=== PATIENT | male | born 1975 ===

== ENCOUNTER 2017-11-14 00:46 | Emergency (ER) | payer MEDICAID ==
[2017-11-14 00:55] VITALS: BP 154/104; PULSE 73; RESP 20; TEMP 99.2; O2SAT 97
[2017-11-14] MEDS ORDERED: Sodium Chloride 0.9% 1,000 ML IV STA (01:10)
--- NOTE | 2017-11-14 01:29 | ED PDOC ---
HPI: Psych/Substance Abuse Time Seen by Provider: 11/14/17 00:57 Chief Complaint (Nursing): Alcohol Ingestion Chief Complaint (Provider): Alcohol Ingestion History Per: Patient History/Exam Limitations: no limitations Onset/Duration Of Symptoms: Mins (prior to arrival) Current Symptoms Are (Timing): Still Present Additional Complaint(s): 42 year old male with previous medical history of alcoholism, who presents to the emergency department with a complaint of feeling tremulous causing inability to walk prior to arrival. Patient stated that he was drinking half a pint of liquor daily but recently stopped because he "wanted to change his life ". Last drink was on 11/12/17. PMD: none provided Past Medical History Reviewed: Historical Data Vital Signs: Last Vital Signs Temp 99.2 F 11/14/17 00:50 Pulse 73 11/14/17 00:50 Resp 20 11/14/17 00:50 BP 154/104 H 11/14/17 00:50 Pulse Ox 97 11/14/17 00:50 - Family History Family History: States: Unknown Family Hx - Social History Alcohol: > 2 Drinks/Day - Allergies Allergies/Adverse Reactions: Allergies Allergy/AdvReac Type Severity Reaction Status Date / Time No Known Allergies Allergy Verified 11/14/17 00:50 Review of Systems ROS Statement: Except As Marked, All Systems Reviewed And Found Negative Neurological: Positive for: Incoordination, Other (tremulous) Psych: Positive for: Withdrawal (ETOH) Physical Exam - Reviewed Nursing Documentation Reviewed: Yes Vital Signs Reviewed: Yes - Physical Exam Appears: Positive for: Well, Non-toxic, Uncomfortable (tremulous) Head Exam: Positive for: ATRAUMATIC, NORMAL INSPECTION, NORMOCEPHALIC Skin: Positive for: Normal Color, Warm, DRY Eye Exam: Positive for: EOMI, Normal appearance, PERRL ENT: Positive for: Other (tongue fasiculations) Neck: Positive for: Normal, Painless ROM Cardiovascular/Chest: Positive for: Regular Rate, Rhythm Respiratory: Positive for: CNT, Normal Breath Sounds Gastrointestinal/Abdominal: Positive for: Normal Exam, Bowel Sounds, Soft Back: Positive for: Normal Inspection Extremity: Positive for: Normal ROM Neurologic/Psych: Positive for: Alert, Oriented - Laboratory Results Result Diagrams: 11/14/17 01:50 11/14/17 01:50 - ECG O2 Sat by Pulse Oximetry: 97 (RA) Pulse Ox Interpretation: Normal Medical Decision Making Medical Decision Making: Initial Impression: Alcohol withdrawal Initial Plan: * EKG * Alcohol serum * BMP * Drug screen, urine * CBC * Ativan 2mg IV * Librium 50mg PO * NS 1,000ml IV per 1,000mls/hr * Urinalysis 320 Pt. no longer tremulous, states he's feeling better. pt. given list of detox facilities. Pt. will go tomorrow. Return precautions discussed. Scribe Attestation: Documented by Nadine Andrea, acting as a scribe for Young Tello MD. Provider Scribe Attestation: All medical record entries made by the Scribe were at my direction and personally dictated by me. I have reviewed the chart and agree that the record accurately reflects my personal performance of the history, physical exam, medical decision making, and the department course for this patient. I have also personally directed, reviewed, and agree with the discharge instructions and disposition. Disposition - Clinical Impression Clinical Impression: Alcohol dependence with withdrawal - Disposition Referrals: Alcoholics Anonymous [Outside] Disposition Time: 03:21 Condition: IMPROVED Additional Instructions: Please seek a detox center as soon as possible. Instructions: Alcohol Withdrawal (DC) Forms: [employer] (Sinhala)
[2017-11-14 01:55] LABS: BASO # 0.1 K/uL (0.0-0.2); EOS # 0.2 K/uL (0.0-0.7); EOS % 6.2 % (0.0-4.0); HEMATOCRIT 37.3 % (35.0-51.0); LYMPH # 0.7 K/uL (1.0-4.3); LYMPH % 21.5 % (20.0-40.0); MEAN CELL VOLUME 95.9 fl (80.0-94.0); MEAN CORPUSCULAR HEMOGLOBIN 31.9 pg (27.0-31.0); MEAN CORPUSCULAR HGB CONC 33.3 g/dL (33.0-37.0); MEAN PLATELET VOLUME 8.7 fl (7.2-11.7); MONO # 0.5 K/uL (0.0-0.8); MONO % 16.2 % (0.0-10.0); NEUT # 1.7 K/uL (1.8-7.0); NEUT % 54.1 % (50.0-75.0); NRBC % 0.2 % (0.0-0.0); RED CELL DISTRIBUTION WIDTH 13.8 % (11.5-14.5); WHITE BLOOD COUNT 3.1 K/uL (4.8-10.8)
[2017-11-14 02:05] LABS: ALCOHOL SERUM < 10 mg/dl (0-10); BLOOD UREA NITROGEN 9 mg/dl (9-20); CALCIUM 9.1 mg/dL (8.4-10.2); CARBON DIOXIDE 28 mmol/L (22-30); CHLORIDE 94 mmol/L (98-107); GFR AFRICAN-AMERICAN > 60; GLUCOSE,RANDOM 100 mg/dL (75-110); POTASSIUM 3.4 MMOL/L (3.6-5.0); SODIUM 136 mmol/l (132-148)
--- NOTE | 2017-11-14 15:52 | CARD ---
APPROVED REPORT EKG Measurement Heart [id number] <Conclusion> Normal sinus rhythm Normal ECG
== END 2017-11-14 04:40 | disposition home or self-care (01) ==
LOC: MERGE 00:46 → H.ER 00:46
DX: F10.239 Alcohol dependence with withdrawal, unspecified (principal)
CPT/HCPCS: 80048; 80320; 85025; 93005; 96374; 99282; J2060; J7040

== ENCOUNTER 2018-12-31 07:32 | Emergency (ER) | payer MEDICAID, OTHER ==
[2018-12-31 07:46] VITALS: BMI 25.2
[2018-12-31 07:48] VITALS: BP 145/75; RESP 20; TEMP 98.4; O2SAT 98
--- NOTE | 2018-12-31 08:18 | ED PDOC ---
HPI: General Adult Time Seen by Provider: 12/31/18 08:04 Chief Complaint (Nursing): Abnormal Skin Integrity Chief Complaint (Provider): Rectal pain History Per: Patient History/Exam Limitations: no limitations Onset/Duration Of Symptoms: Days (2) Current Symptoms Are (Timing): Still Present Severity: Moderate Additional History Per: Patient Additional Complaint(s): 43yo male, otherwise well, comes to ER reporting pain and swelling to his right perirectal area x 2 days. He denies any fever, chills, or discharge from the site. No additional complaints. PMD: Past Medical History Reviewed: Historical Data, Nursing Documentation, Vital Signs Vital Signs: Last Vital Signs Temp 98.4 F 12/31/18 07:46 Pulse 105 H 12/31/18 07:46 Resp 20 12/31/18 07:46 BP 145/75 12/31/18 07:46 Pulse Ox 98 12/31/18 07:46 - Medical History PMH: Depression Denies: Diabetes, Emphysema, Hepatitis, HIV, HTN, Chronic Kidney Disease, Seizures, Sexually Transmitted Disease - Surgical History Surgical History: No Surg Hx - Family History Family History: States: No Known Family Hx - Immunization History Hx Tetanus Toxoid Vaccination: Yes Hx Influenza Vaccination: Yes Hx Pneumococcal Vaccination: No - Home Medications Home Medications: Ambulatory Orders Medication Instructions Recorded chlordiazePOXIDE [Chlordiazepoxide 25 mg PO Q4 PRN #20 cap 11/14/17 HCl] Naproxen [Naprosyn] 500 mg PO Q12H #20 tab 12/31/18 RX: Clindamycin [Cleocin] 300 mg PO TID #30 cap 12/31/18 - Allergies Allergies/Adverse Reactions: Allergies Allergy/AdvReac Type Severity Reaction Status Date / Time No Known Allergies Allergy Verified 12/31/18 07:54 Review of Systems ROS Statement: Except As Marked, All Systems Reviewed And Found Negative Constitutional: Negative for: Fever, Chills Gastrointestinal: Positive for: Rectal Pain Physical Exam - Reviewed Nursing Documentation Reviewed: Yes Vital Signs Reviewed: Yes - Physical Exam Appears: Positive for: Non-toxic, No Acute Distress Head Exam: Positive for: ATRAUMATIC, NORMAL INSPECTION, NORMOCEPHALIC Skin: Positive for: Normal Color Eye Exam: Positive for: Normal appearance Neck: Positive for: Supple Cardiovascular/Chest: Positive for: Regular Rate, Rhythm Respiratory: Positive for: Normal Breath Sounds Rectal: Positive for: Tenderness (right perirectal area with induration, non- fluctuant. no drianage. does not pass sphincter) Neurologic/Psych: Positive for: Alert, Oriented. Negative for: Motor/Sensory Deficits - ECG O2 Sat by Pulse Oximetry: 98 (RA) Pulse Ox Interpretation: Normal Medical Decision Making Medical Decision Making: Rectal pain x 2 days Plan: Non-fluctuant area, will not incise and drain at this time. Patient to be started on PO antibiotics, instructed on sitz baths Informed to follow up in 2-3 days for re-evaluation Patient given prescription for Naproxen for pain relief. Scribe Attestation: Documented by Khalida Durbin acting as a scribe for David Abdul MD. Provider Attestation: All medical record entries made by the Scribe were at my direction and personally dictated by me. I have reviewed the chart and agree that the record accurately reflects my personal performance of the history, physical exam, medical decision making, and the department course for this patient. I have also personally directed, reviewed, and agree with the discharge instructions and disposition. Disposition - Clinical Impression Clinical Impression: Perirectal cellulitis - Patient ED Disposition Is Patient to be Admitted: No Counseled Patient/Family Regarding: Diagnosis, Need For Followup, Rx Given - Disposition Referrals: [facility] [Outside] Disposition: Routine/Home Disposition Time: 08:15 Condition: FAIR Prescriptions: RX: Clindamycin [Cleocin] 300 mg PO TID #30 cap Naproxen [Naprosyn] 500 mg PO Q12H #20 tab Instructions: Cellulitis (Skin Infection), Adult (DC) Forms: [employer] (Panamanian)
[2018-12-31 08:19] VITALS: PULSE 89
== END 2018-12-31 08:20 | disposition home or self-care (01) ==
LOC: H.ER 07:32
DX: K61.1 Rectal abscess (principal); Z86.59 Personal history of other mental and behavioral disorders

== ENCOUNTER 2019-01-05 12:14 | Inpatient (IN) | payer OTHER ==
[2019-01-05 12:15] VITALS: BMI 25.2
[2019-01-05] MEDS ORDERED: Piperacillin/Tazobact 3.375 GM in Sodium Chloride 0.9% 100 ML IVPB ONE (12:47)
[2019-01-05] MEDS ORDERED: Sodium Chloride 0.9% 500 ML IV ONE (12:49)
[2019-01-05] MEDS ORDERED: Tdap Vaccine 0.5 ml Vial (10-64 yrs) IM ONE ×2 (12:55→13:25)
--- NOTE | 2019-01-05 13:02 | ED PDOC ---
HPI: General Adult Time Seen by Provider: 01/05/19 12:33 Chief Complaint (Nursing): Wound Check Chief Complaint (Provider): Rectal Pain History Per: Patient History/Exam Limitations: no limitations Onset/Duration Of Symptoms: Days (x1 week) Current Symptoms Are (Timing): Still Present Additional Complaint(s): 43 year old male presents to the ED for evaluation of persistent rectal pain for the past week. He reports he was seen here two days after onset and sent home w ith Clindamycin which he notes compliance with. Despite this, patient is stating symptoms worsened and the swelling / redness to the area spread, making it extremely painful to sit. Otherwise denies fever, chills, blood in stool, vomiting, and diarrhea. Tetanus not up to date PMD: none provided Past Medical History Reviewed: Historical Data, Nursing Documentation, Vital Signs Vital Signs: Last Vital Signs Temp 98.2 F 01/05/19 12:19 Pulse 108 H 01/05/19 12:19 Resp 16 01/05/19 12:19 BP 126/77 01/05/19 12:19 Pulse Ox 100 01/05/19 12:19 - Medical History PMH: Depression Other PMH: alcohol abuse - Surgical History Surgical History: No Surg Hx - Family History Family History: States: Unknown Family Hx - Social History Current smoker - smoking cessation education provided: Yes (3cigs/day) Alcohol: Other (hx of abuse) Drugs: Denies - Immunization History Hx Tetanus Toxoid Vaccination: No (will update this visit) - Home Medications Home Medications: Ambulatory Orders Medication Instructions Recorded Clindamycin [Cleocin] 300 mg PO TID #30 cap 12/31/18 Naproxen [Naprosyn] 500 mg PO Q12H #20 tab 12/31/18 - Allergies Allergies/Adverse Reactions: Allergies Allergy/AdvReac Type Severity Reaction Status Date / Time No Known Allergies Allergy Verified 01/05/19 12:19 Review of Systems ROS Statement: Except As Marked, All Systems Reviewed And Found Negative Constitutional: Negative for: Fever, Chills Gastrointestinal: Positive for: Rectal Pain (swelling, and redness). Negative for: Vomiting, Diarrhea Physical Exam - Reviewed Nursing Documentation Reviewed: Yes Vital Signs Reviewed: Yes - Physical Exam Comments: GENERAL APPEARANCE: Patient is awake, alert, oriented x 3, in no acute distress. SKIN: Warm, dry; (-) cyanosis. ENMT: Mucous membranes moist. Airway patent, (-) stridor. NECK: Supple, FROM CHEST AND RESPIRATORY: (-) rales, (-) rhonchi, (-) wheezes; breath sounds equal bilaterally. Respirations even and nonlabored. HEART AND CARDIOVASCULAR: (-) irregularity ABDOMEN AND GI: Soft (-) distention. Bowel sounds active x4; (-) tenderness (-) guarding, (-) rebound RECTAL: (+) erythema and induration to left gluteal cheek with a central pustule and diffuse tenderness. Erythema extends to right gluteus. (+) induration NEURO AND PSYCH: Mental status as above; (-) focal findings. Gait: steady. Speech: clear. Academic Tutor for rectal exam: ED RN Belinda - Laboratory Results Result Diagrams: 01/05/19 12:53 01/05/19 12:53 - ECG O2 Sat by Pulse Oximetry: 100 (RA) Pulse Ox Interpretation: Normal Medical Decision Making Medical Decision Making: Initial Impression: rectal cellulitis Time: 1245 Initial Plan: --CT Pelvis with IV contrast --CMP --Drug screen --CBC with differential --Normal saline --Toradol 30mg IVP --Vancomycin 1gm NS 250ml IVPB --Zosyn 3.375gm NS 100ml IVPB --Blood culture --Tetanus booster --Reevaluation 1420 Labs reviewed. Utox: negative. No leukocytosis. Patient in CT. 1450 Repeat HR: [address] reviewed, radiology report follows Date of service: 01/05/2019 PROCEDURE: CT Pelvis with contrast HISTORY: perirectal abscess/cellulitis COMPARISON: None available. TECHNIQUE: Contiguous axial images of the pelvis with contrast. Coronal and sagittal reformats generated. contrast dose: Omnipaque 300, 95 cc Radiation dose: Total exam DLP = 446.69 mGy-cm. This CT exam was performed using one or more of the following dose reduction techniques: Automated exposure control, adjustment of the mA and/or kV according to patient size, and/or use of iterative reconstruction technique. FINDINGS: Dermal thickening with subcutaneous reaction is seen at the facial medial left buttocks skin and subcutaneous fat approaching the left gluteus alex muscle. Borderline left perianal involvement. No fluid collection is appreciated to suggest defined abscess however. Trace contralateral subcutaneous reaction is seen in a minimal portion of the medial right buttocks right lateral to the gluteal fold. BLADDER: Nearly completely decompressed and limited evaluation. No radiodense urolit hiasis or gross mass. REPRODUCTIVE ORGANS: Unremarkable. VISUALIZED BOWEL: Unremarkable. PERITONEUM: Unremarkable, as visualized. No free fluid. No free air. LYMPH NODES: Unremarkable. No enlarged lymph nodes. VASCULATURE: No aortic atherosclerotic calcification or mural plaque present. BONES: No fracture or focal lesion. OTHER FINDINGS: Left inguinal fluid collection measuring 2.3 x 2.7 cm without associated enhancement. This may represent a small seroma or chronic hematoma. Clinically correlate. IMPRESSION: Pattern likely represents cellulitis of the left-sided gluteal fold extending into the subcutaneous fat of the left buttocks and approaching the gluteus alex muscle. No definitive abscess pattern appreciable. Trace similar changes seen at the right side of the gluteal fold. Borderline left perineural involvement. Case discussed with ED MD Molina. who recommends admission for failed outpatient therapy. Consult placed to medicine networks software consultant, Dr Miles. [address] Miles who is agreeable to admission. Patient agreeable to admission. Vitals stable. --- Scribe Attestation: Documented by Ana Rosa Jackson, acting as a scribe for Yael Benson PA-C. Provider Scribe Attestation: All medical record entries made by the Scribe were at my direction and person ally dictated by me. I have reviewed the chart and agree that the record accurately reflects my personal performance of the history, physical exam, medical decision making, and the department course for this patient. I have also personally directed, reviewed, and agree with the discharge instructions and disposition. Disposition - Clinical Impression Clinical Impression: Cellulitis of buttock - Patient ED Disposition Is Patient to be Admitted: Yes Discussed With : Yaniv Miles Doctor Will See Patient In The: Hospital Counseled Patient/Family Regarding: Studies Performed, Diagnosis - Disposition Disposition Time: 15:50 Condition: FAIR - Pt Status Changed To: Hospital Disposition Of: Inpatient - Admit Certification Admit to Inpatient:: After my assessment, the patient will require hospitalization for at least two midnights. This is because of the severity of symptoms shown, intensity of services needed, and/or the medical risk in this patient being treated as an outpatient. - POA Present On Arrival: None Results - Lab Results Lab Results: 01/05/19 01/05/19 01/05/19 12:53 12:53 12:53 WBC 8.7 D RBC 4.28 L Hgb 13.0 Hct 39.2 MCV 91.6 D MCH 30.3 MCHC 33.0 RDW 14.3 Plt Count 174 D MPV 7.8 Neut % (Auto) 61.3 Lymph % (Auto) 28.6 Grady % (Auto) 7.4 Eos % (Auto) 2.0 Baso % (Auto) 0.7 Neut # (Auto) 5.3 Lymph # (Auto) 2.5 Grady # (Auto) 0.6 Eos # (Auto) 0.2 Baso # (Auto) 0.1 Sodium 141 Potassium 3.7 Chloride 102 Carbon Dioxide 26 Anion Gap 17 BUN 10 Creatinine 0.9 Est GFR ( Amer) > 60 Est GFR (Non-Af Amer) > 60 Random Glucose 114 H Calcium 8.9 Total Bilirubin 0.6 AST 35 ALT 20 L D Alkaline Phosphatase 84 Total Protein 8.1 Albumin 3.8 Globulin 4.3 H Albumin/Globulin Ratio 0.9 L Urine Opiates Screen Negative Urine Methadone Screen Negative Ur Barbiturates Screen Negative Ur Phencyclidine Scrn Negative Ur Amphetamines Screen Negative U Benzodiazepines Scrn Negative U Oth Cocaine Metabols Negative U Cannabinoids Screen Negative
[2019-01-05] MEDS ORDERED: Piperacillin/Tazobact 3.375 gm Inj IVPB ONE (13:24)
[2019-01-05] MEDS ORDERED: Vancomycin 1 g Inj ONE (13:25)
[2019-01-05 13:47] LABS: BASO # 0.1 K/uL (0.0-0.2); BASO % 0.7 % (0.0-2.0); EOS # 0.2 K/uL (0.0-0.7); LYMPH # 2.5 K/uL (1.0-4.3); LYMPH % 28.6 % (20.0-40.0); MEAN CELL VOLUME 91.6 fl (80.0-94.0); MEAN CORPUSCULAR HEMOGLOBIN 30.3 pg (27.0-31.0); MEAN PLATELET VOLUME 7.8 fl (7.2-11.7); MONO # 0.6 K/uL (0.0-0.8); MONO % 7.4 % (0.0-10.0); NEUT # 5.3 K/uL (1.8-7.0); NEUT % 61.3 % (50.0-75.0); RBC 4.28 Mil/uL (4.40-5.90); RED CELL DISTRIBUTION WIDTH 14.3 % (11.5-14.5); WHITE BLOOD COUNT 8.7 K/uL (4.8-10.8)
[2019-01-05 14:00] LABS: ALB/GLOB RATIO 0.9 (1.0-2.1); ALBUMIN 3.8 g/dL (3.5-5.0); ALT/SGPT 20 U/L (21-72); AST/SGOT 35 U/L (17-59); BLOOD UREA NITROGEN 10 mg/dl (9-20); CALCIUM 8.9 mg/dL (8.4-10.2); GFR NON-AFRICAN AMERICAN > 60
[2019-01-05 14:06] LABS: BARBITURATES, UR NEGATIVE (NEGATIVE); BENZODIAZEPINES, UR NEGATIVE (NEGATIVE); OPIATES, UR NEGATIVE (NEGATIVE); PHENCYCLIDINE, UR NEGATIVE (NEGATIVE)
[2019-01-05] MEDS ORDERED: Iohexol 300 100 ML IJ ONE (14:07)
[2019-01-05] MEDS ORDERED: Sodium Chloride 0.9% 50 ML IV ONE (14:07)
--- NOTE | 2019-01-05 15:29 | CT ---
Date of service: 01/05/2019 PROCEDURE: CT Pelvis with contrast HISTORY: perirectal abscess/cellulitis COMPARISON: None available. TECHNIQUE: Contiguous axial images of the pelvis with contrast. Coronal and sagittal reformats generated. contrast dose: Omnipaque 300, 95 cc Radiation dose: Total exam DLP = 446.69 mGy-cm. This CT exam was performed using one or more of the following dose reduction techniques: Automated exposure control, adjustment of the mA and/or kV according to patient size, and/or use of iterative reconstruction technique. FINDINGS: Dermal thickening with subcutaneous reaction is seen at the facial medial left buttocks skin and subcutaneous fat approaching the left gluteus alex muscle. Borderline left perianal involvement. No fluid collection is appreciated to suggest defined abscess however. Trace contralateral subcutaneous reaction is seen in a minimal portion of the medial right buttocks right lateral to the gluteal fold. BLADDER: Nearly completely decompressed and limited evaluation. No radiodense urolithiasis or gross mass. REPRODUCTIVE ORGANS: Unremarkable. VISUALIZED BOWEL: Unremarkable. PERITONEUM: Unremarkable, as visualized. No free fluid. No free air. LYMPH NODES: Unremarkable. No enlarged lymph nodes. VASCULATURE: No aortic atherosclerotic calcification or mural plaque present. BONES: No fracture or focal lesion. OTHER FINDINGS: Left inguinal fluid collection measuring 2.3 x 2.7 cm without associated enhancement. This may represent a small seroma or chronic hematoma. Clinically correlate. IMPRESSION: Pattern likely represents cellulitis of the left-sided gluteal fold extending into the subcutaneous fat of the left buttocks and approaching the gluteus alex muscle. No definitive abscess pattern appreciable. Trace similar changes seen at the right side of the gluteal fold. Borderline left perineural involvement.
[2019-01-05] MEDS ORDERED: Chlorhexidine Gluconate 1 APPL/PKT TP ONE (20:15)
--- NOTE | 2019-01-05 20:36 | CP.PCM.CON ---
<Abebe Holden - Last Filed: 01/05/19 20:38> History of Present Illness - History of Present Illness History of Present Illness: Surgery: DR. Martin Reason for consult: left gluteal cellulitis HPI: Patient is a 43 y/o male who presents complaining of left gluteal pain and swelling for the past week. He reports being seen in ER 4 days ago for similar problem, was given PO abx and cream and was sent home. He states he has been using the medication for 1 day and the symptoms did not go away which prompted return visit to ER. He denies fever chills nausea or vomiting. He denies drainag e from the area. He denies constipation, diarrhea, bloody or tarry stools. He denies hx of IBD or prior colonoscopy. PMH: denies however prior admission noted for schizophrenia PSH: denies Social: smokes 3 cigs/day, social ETOH use, denies drug abuse Review of Systems - Constitutional Constitutional: absent: Anorexia, Chills, Fever - EENT Eyes: absent: Change in Vision, Dry Eye Nose/Mouth/Throat: absent: Dry Mouth, Dysphagia - Cardiovascular Cardiovascular: absent: Chest Pain, Dyspnea - Respiratory Respiratory: absent: Cough, Wheezing - Gastrointestinal Gastrointestinal: absent: Abdominal Pain, Change in Bowel Habits, Change in Stool Character, Constipation, Diarrhea, Hematochezia, Nausea, Vomiting - Integumentary Integumentary: Sores, Wounds - Neurological Neurological: absent: Dizziness, Weakness - Endocrine Endocrine: absent: Polydipsia, Polyphagia - Hematologic/Lymphatic Hematologic: absent: Easy Bleeding, Easy Bruising Past Patient History - Past Medical History & Family History Past Medical History?: Yes - Past Social History Smoking Status: Light Smoker < 10 Cigarettes Daily - CARDIAC Hx Hypertension: No - PULMONARY Hx Emphysema: No - NEUROLOGICAL Hx Seizures: No - HEENT Hx HEENT Problems: No - RENAL Hx Chronic Kidney Disease: No - ENDOCRINE/METABOLIC Hx Endocrine Disorders: No - HEMATOLOGICAL/ONCOLOGICAL Hx Human Immunodeficiency Virus (HIV): No - INTEGUMENTARY Hx Dermatological Problems: No - MUSCULOSKELETAL/RHEUMATOLOGICAL Hx Musculoskeletal Disorders: No Hx Falls: No - GASTROINTESTINAL Hx Gastrointestinal Disorders: No - GENITOURINARY/GYNECOLOGICAL Hx Sexually Transmitted Disorders: No - PSYCHIATRIC Hx Depression: Yes Hx Substance Use: No - SURGICAL HISTORY Hx Surgeries: No - ANESTHESIA Hx Anesthesia: Yes Hx Anesthesia Reactions: No Meds Allergies/Adverse Reactions: Allergies Allergy/AdvReac Type Severity Reaction Status Date / Time No Known Allergies Allergy Verified 01/05/19 12:19 - Medications Medications: Current Medications Docusate Sodium (Colace) 100 mg PO BID ANDRÉS Piperacillin Sod/Tazobactam (Sod 3.375 gm/ Sodium Chloride) 100 mls @ 100 mls/hr IVPB Q8 ANDRÉS; Protocol Vancomycin HCl 1 gm/ Sodium (Chloride) 250 mls @ 166.667 mls/hr IVPB Q12 ANDRÉS; Protocol Physical Exam - Constitutional Appears: Non-toxic, No Acute Distress - Head Exam Head Exam: ATRAUMATIC, NORMOCEPHALIC - Eye Exam Eye Exam: EOMI, Normal appearance - ENT Exam ENT Exam: Mucous Membranes Moist - Respiratory Exam Respiratory Exam: NORMAL BREATHING PATTERN. absent: Respiratory Distress - Cardiovascular Exam Cardiovascular Exam: REGULAR RHYTHM. absent: Tachycardia - GI/Abdominal Exam GI & Abdominal Exam: Soft. absent: Distended, Tenderness - Rectal Exam Rectal Exam: absent: Black Stool, Bloody Stool, Hemorrhoids Additional comments: good sphincter tone Left gluteal area with 3x3 centimeter area on induration. Small central punctate or purulent fluid, minimal and none able to be expressed. No area of fluctuance. - Extremities Exam Extremities exam: Positive for: normal inspection. Negative for: calf tenderness - Neurological Exam Neurological exam: Alert, Oriented x3 - Psychiatric Exam Psychiatric exam: Normal Affect, Normal Mood - Skin Skin Exam: Dry, Warm Results - Vital Signs Recent Vital Signs: Last Vital Signs Temp 98 F 01/05/19 18:11 Pulse 85 01/05/19 18:11 Resp 20 01/05/19 18:14 BP 116/72 01/05/19 18:11 Pulse Ox 94 L 01/05/19 18:11 - Labs Result Diagrams: 01/05/19 12:53 01/05/19 12:53 Labs: Laboratory Results - last 24 hr 01/05/19 01/05/19 01/05/19 12:53 12:53 12:53 WBC 8.7 D RBC 4.28 L Hgb 13.0 Hct 39.2 MCV 91.6 D MCH 30.3 MCHC 33.0 RDW 14.3 Plt Count 174 D MPV 7.8 Neut % (Auto) 61.3 Lymph % (Auto) 28.6 [place] % (Auto) 7.4 Eos % (Auto) 2.0 Baso % (Auto) 0.7 Neut # (Auto) 5.3 Lymph # (Auto) 2.5 [place] # (Auto) 0.6 Eos # (Auto) 0.2 Baso # (Auto) 0.1 Sodium 141 Potassium 3.7 Chloride 102 Carbon Dioxide 26 Anion Gap 17 BUN 10 Creatinine 0.9 Est GFR ( Amer) > 60 Est GFR (Non-Af Amer) > 60 Random Glucose 114 H Calcium 8.9 Total Bilirubin 0.6 AST 35 ALT 20 L D Alkaline Phosphatase 84 Total Protein 8.1 Albumin 3.8 Globulin 4.3 H Albumin/Globulin Ratio 0.9 L Urine Opiates Screen Negative Urine Methadone Screen Negative Ur Barbiturates Screen Negative Ur Phencyclidine Scrn Negative Ur Amphetamines Screen Negative U Benzodiazepines Scrn Negative U Oth Cocaine Metabols Negative U Cannabinoids Screen Negative - Impressions Impression: PELVIS CT: gluteal cellulitis w/o evidence of abscess or collection Assessment & Plan - Assessment and Plan (Free Text) Assessment: 43 y/o male w/ gluteal cellulitis Plan: -no drainable collection at this time -cont abx -sitz baths -warm compresses -OOB ambulate -will cont to follow -d/w Dr. Mario Montelongo PGY4 <Ramin Nugent - Last Filed: 01/06/19 10:03> Meds - Medications Medications: Current Medications Docusate Sodium (Colace) 100 mg PO BID ANDRÉS Last Admin: 01/06/19 08:59 Dose: 100 mg Vancomycin HCl 1 gm/ Sodium (Chloride) 250 mls @ 166.667 mls/hr IVPB Q12 ANDRÉS; Protocol Last Admin: 01/05/19 21:23 Dose: 166.667 mls/hr Piperacillin Sod/Tazobactam (Sod 3.375 gm/ Sodium Chloride) 100 mls @ 100 mls/hr IVPB Q6 ANDRÉS; Protocol Last Admin: 01/06/19 09:02 Dose: 100 mls/hr Results - Vital Signs Recent Vital Signs: Last Vital Signs Temp 97.8 F 01/06/19 07:48 Pulse 94 H 01/06/19 07:48 Resp 19 01/06/19 07:48 BP 120/85 01/06/19 07:48 Pulse Ox 95 01/06/19 07:48 - Labs Result Diagrams: 01/05/19 12:53 01/05/19 12:53 Labs: Laboratory Results - last 24 hr 01/05/19 01/05/19 01/05/19 12:53 12:53 12:53 WBC 8.7 D RBC 4.28 L Hgb 13.0 Hct 39.2 MCV 91.6 D MCH 30.3 MCHC 33.0 RDW 14.3 Plt Count 174 D MPV 7.8 Neut % (Auto) 61.3 Lymph % (Auto) 28.6 [place] % (Auto) 7.4 Eos % (Auto) 2.0 Baso % (Auto) 0.7 Neut # (Auto) 5.3 Lymph # (Auto) 2.5 [place] # (Auto) 0.6 Eos # (Auto) 0.2 Baso # (Auto) 0.1 Sodium 141 Potassium 3.7 Chloride 102 Carbon Dioxide 26 Anion Gap 17 BUN 10 Creatinine 0.9 Est GFR ( Amer) > 60 Est GFR (Non-Af Amer) > 60 Random Glucose 114 H Calcium 8.9 Total Bilirubin 0.6 AST 35 ALT 20 L D Alkaline Phosphatase 84 Total Protein 8.1 Albumin 3.8 Globulin 4.3 H Albumin/Globulin Ratio 0.9 L Urine Opiates Screen Negative Urine Methadone Screen Negative Ur Barbiturates Screen Negative Ur Phencyclidine Scrn Negative Ur Amphetamines Screen Negative U Benzodiazepines Scrn Negative U Oth Cocaine Metabols Negative U Cannabinoids Screen Negative
[2019-01-06] MEDS ORDERED: Piperacillin/Tazobact 3.375 GM in Sodium Chloride 0.9% 100 ML IVPB SCH ×2 (01:00→09:00)
[2019-01-06] MEDS: Piperacillin/Tazobact 3.375 GM in Sodium Chloride 0.9% 100 ML IVPB SCH ×3 (09:02→22:34)
[2019-01-06] MEDS ORDERED: Lidocaine 1% Inj (20ml) IJ ONE (09:10)
[2019-01-06] MEDS ORDERED: Lidocaine 2% Inj (20ml) ONE (09:12)
--- NOTE | 2019-01-06 10:06 | CP.PCM.PN ---
Subjective - Date & Time of Evaluation Date of Evaluation: 01/06/19 Time of Evaluation: 10:04 - Subjective Subjective: seen at bedside, no overnight events. Pt afebrile, continues to report pain to left gluteal area and now reports some bloody drainage. Objective - Vital Signs/Intake and Output Vital Signs (last 24 hours): Temp Pulse Resp BP Pulse Ox 97.8 F 94 H 19 120/85 95 01/06/19 07:48 01/06/19 07:48 01/06/19 07:48 01/06/19 07:48 01/06/19 07:48 - Medications Medications: Current Medications Docusate Sodium (Colace) 100 mg PO BID ANDRÉS Last Admin: 01/06/19 08:59 Dose: 100 mg Vancomycin HCl 1 gm/ Sodium (Chloride) 250 mls @ 166.667 mls/hr IVPB Q12 ANDRÉS; Protocol Last Admin: 01/05/19 21:23 Dose: 166.667 mls/hr Piperacillin Sod/Tazobactam (Sod 3.375 gm/ Sodium Chloride) 100 mls @ 100 mls/hr IVPB Q6 ANDRÉS; Protocol Last Admin: 01/06/19 09:02 Dose: 100 mls/hr - Labs Labs: 01/05/19 12:53 01/05/19 12:53 - Constitutional Appears: No Acute Distress - Head Exam Head Exam: ATRAUMATIC, NORMAL INSPECTION, NORMOCEPHALIC - Eye Exam Eye Exam: EOMI, PERRL - ENT Exam ENT Exam: Mucous Membranes Moist - Neck Exam Neck Exam: absent: Lymphadenopathy - GI/Abdominal Exam GI & Abdominal Exam: Soft. absent: Tenderness - Rectal Exam Additional comments: left gluteal abscess 2cm with surrounding induration, central area of fluctuance pinpoint opening with purulent drainage s/p incision and drainage - Extremities Exam Extremities Exam: Full ROM Assessment and Plan - Assessment and Plan (Free Text) Assessment: 43 yo M s/p ID of left gluteal abscess Plan: cont abx local wound care sitz baths f/u cultures
--- NOTE | 2019-01-06 10:12 | PCM.PROC ---
- Incision & Drainage Of Abscess Anesthesia: Lidocaine 1% Prep Used: Betadine Procedure: Incised W/Scalpel Blade#: (11), Drained Pus, Irrigated Cavity W/Saline, Probed To Break Up Loculations, Packed W/Gauze, Cultures Obtained And Sent To Lab
[2019-01-06] MEDS ORDERED: Oxycodone/Acetaminophen 5/325 mg Tab PO PRN ×2 (11:59→12:00)
[2019-01-06] MEDS: Oxycodone/Acetaminophen 5/325 mg Tab PO PRN ×2 (12:15→20:23)
--- NOTE | 2019-01-06 13:06 | CP.PCM.HP ---
History of Present Illness - History of Present Illness History of Present Illness: CC: Gluteal pain. 43 y/o M, PMHx: Depression, Pt came to ER [facility] on 12/05/18 to be evaluated for L Gluteal pain associated to swelling/ redness in the area near to the rectum for one week [employer] with no relief. Pt was seen in the ER on 12/31/18 for same Dx, discharged on Clindamycin with no relief. Worsening symptoms: Painful BM. Aggravated factor: Seating. Pt denied: Fever, chills, n/v/d, abdominal pain, urinary symptoms, CP, palpitations, SOB, cough, sick contact, recent travel out of [place]. Pelvis CT: Cellulite L gluteal fold. Present on Admission - Present on Admission Any Indicators Present on Admission: No Review of Systems - Constitutional Constitutional: Other (negative) - EENT Eyes: Other (negative) Ears: Other (negative) Nose/Mouth/Throat: Other (negative) - Cardiovascular Cardiovascular: Other (negative) - Respiratory Respiratory: Other (negative) - Gastrointestinal Gastrointestinal: Other (painful BM 2nd to gluteal cellulitis closed to the rectal area) - Genitourinary Genitourinary: Other (negative) - Musculoskeletal Musculoskeletal: Other (negative) - Integumentary Integumentary: Swelling (gluteal area), Wounds (gluteal) - Neurological Neurological: Other (negative) - Psychiatric Psychiatric: Other (negtaive) - Endocrine Endocrine: Other (negative) - Hematologic/Lymphatic Hematologic: Other (negative) Past Patient History - Past Medical History & Family History Past Medical History?: Yes Pertinent Family History: Unknown - Past Social History Smoking Status: Light Smoker < 10 Cigarettes Daily Alcohol: Social Drugs: Denies Home Situation {Lives}: Friends - CARDIAC Hx Cardiac Disorders: No Hx Hypertension: No - PULMONARY Hx Respiratory Disorders: No Hx Emphysema: No - NEUROLOGICAL Hx Neurological Disorder: No Hx Seizures: No - HEENT Hx HEENT Problems: No - RENAL Hx Chronic Kidney Disease: No - ENDOCRINE/METABOLIC Hx Endocrine Disorders: No - HEMATOLOGICAL/ONCOLOGICAL Hx Blood Disorders: No Hx Human Immunodeficiency Virus (HIV): No - INTEGUMENTARY Hx Dermatological Problems: No - MUSCULOSKELETAL/RHEUMATOLOGICAL Hx Musculoskeletal Disorders: No Hx Falls: No - GASTROINTESTINAL Hx Gastrointestinal Disorders: No - GENITOURINARY/GYNECOLOGICAL Hx Genitourinary Disorders: No Hx Sexually Transmitted Disorders: No - PSYCHIATRIC Hx Psychophysiologic Disorder: Yes Hx Depression: Yes Hx Substance Use: No - SURGICAL HISTORY Hx Surgeries: No - ANESTHESIA Hx Anesthesia: Yes Hx Anesthesia Reactions: No Meds Allergies/Adverse Reactions: Allergies Allergy/AdvReac Type Severity Reaction Status Date / Time No Known Allergies Allergy Verified 01/05/19 12:19 Physical Exam - Constitutional Appears: No Acute Distress - Head Exam Head Exam: NORMAL INSPECTION - Eye Exam Eye Exam: PERRL - ENT Exam ENT Exam: Normal Exam - Neck Exam Neck exam: Positive for: Normal Inspection - Respiratory Exam Respiratory Exam: NORMAL BREATHING PATTERN - Cardiovascular Exam Cardiovascular Exam: REGULAR RHYTHM - GI/Abdominal Exam GI & Abdominal Exam: Soft - Extremities Exam Extremities exam: Positive for: normal inspection - Back Exam Additional comments: L gluteal area induration/redness - Neurological Exam Neurological exam: Alert, Oriented x3 Additional comments: No motor/sensory deficit. - Psychiatric Exam Psychiatric exam: Normal Mood - Skin Skin Exam: Warm Results - Vital Signs Recent Vital Signs: Last Vital Signs Temp 97.8 F 01/06/19 07:48 Pulse 94 H 01/06/19 07:48 Resp 19 01/06/19 07:48 BP 120/85 01/06/19 07:48 Pulse Ox 95 01/06/19 07:48 reviewed Ashley - Labs Result Diagrams: 01/05/19 12:53 01/05/19 12:53 Labs: Laboratory Results - last 24 hr 01/05/19 01/05/19 01/05/19 12:53 12:53 12:53 WBC 8.7 D RBC 4.28 L Hgb 13.0 Hct 39.2 MCV 91.6 D MCH 30.3 MCHC 33.0 RDW 14.3 Plt Count 174 D MPV 7.8 Neut % (Auto) 61.3 Lymph % (Auto) 28.6 [place] % (Auto) 7.4 Eos % (Auto) 2.0 Baso % (Auto) 0.7 Neut # (Auto) 5.3 Lymph # (Auto) 2.5 [place] # (Auto) 0.6 Eos # (Auto) 0.2 Baso # (Auto) 0.1 Sodium 141 Potassium 3.7 Chloride 102 Carbon Dioxide 26 Anion Gap 17 BUN 10 Creatinine 0.9 Est GFR ( Amer) > 60 Est GFR (Non-Af Amer) > 60 Random Glucose 114 H Calcium 8.9 Total Bilirubin 0.6 AST 35 ALT 20 L D Alkaline Phosphatase 84 Total Protein 8.1 Albumin 3.8 Globulin 4.3 H Albumin/Globulin Ratio 0.9 L Urine Opiates Screen Negative Urine Methadone Screen Negative Ur Barbiturates Screen Negative Ur Phencyclidine Scrn Negative Ur Amphetamines Screen Negative U Benzodiazepines Scrn Negative U Oth Cocaine Metabols Negative U Cannabinoids Screen Negative reviewed J.P. - Imaging and Cardiology CT scan - pelvis Status: Report reviewed by me (Ashley) Assessment & Plan (1) Cellulitis of buttock Status: Acute Priority: High (2) Constipation Status: Acute Priority: High - Assessment and Plan (Free Text) Plan: F/U Blood/ Wound C-S, continue Vanco, Zosyn, Percocet and rest of Tx, Surgery consult appreciated. - Date & Time Date: 01/06/19 Time: 12:30
[2019-01-07 00:33] VITALS: TEMP 97.8
[2019-01-07] MEDS: Piperacillin/Tazobact 3.375 GM in Sodium Chloride 0.9% 100 ML IVPB SCH ×2 (04:59→11:17)
[2019-01-07] MEDS: Oxycodone/Acetaminophen 5/325 mg Tab PO PRN ×3 (05:03→13:56)
[2019-01-07 07:53] VITALS: BP 107/75; PULSE 92; RESP 20; O2SAT 98
--- NOTE | 2019-01-07 10:39 | CP.PCM.PN ---
Subjective - Date & Time of Evaluation Date of Evaluation: 01/07/19 Time of Evaluation: 10:39 Objective - Vital Signs/Intake and Output Vital Signs (last 24 hours): Temp Pulse Resp BP Pulse Ox 97.8 F 92 H 20 107/75 98 01/07/19 07:51 01/07/19 07:51 01/07/19 07:51 01/07/19 07:51 01/07/19 07:51 - Medications Medications: Current Medications Docusate Sodium (Colace) 100 mg PO BID ANDRÉS Last Admin: 01/06/19 17:07 Dose: 100 mg Vancomycin HCl 1 gm/ Sodium (Chloride) 250 mls @ 166.667 mls/hr IVPB Q12 ANDRÉS; Protocol Last Admin: 01/07/19 09:32 Dose: 166.667 mls/hr Piperacillin Sod/Tazobactam (Sod 3.375 gm/ Sodium Chloride) 100 mls @ 100 mls/hr IVPB Q6 ANDRÉS; Protocol Last Admin: 01/07/19 04:59 Dose: 100 mls/hr Oxycodone/Acetaminophen (Percocet 5/325 Mg Tab) 1 tab PO Q4 PRN PRN Reason: Pain, moderate (4-7) Stop: 01/09/19 11:50 Last Admin: 01/07/19 09:39 Dose: 1 tab Oxycodone/Acetaminophen (Percocet 5/325 Mg Tab) 1 tab PO Q4 PRN PRN Reason: Pain, Mild (1-3) Stop: 01/09/19 12:00 Oxycodone/Acetaminophen (Percocet 5/325 Mg Tab) 1 tab PO Q4 PRN PRN Reason: Pain, severe (8-10) Stop: 01/09/19 12:01 - Labs Labs: 01/05/19 12:53 01/05/19 12:53
--- NOTE | 2019-01-07 10:40 | CP.PCM.PN ---
Subjective - Date & Time of Evaluation Date of Evaluation: 01/07/19 Time of Evaluation: 10:36 - Subjective Subjective: General Surgery Pt seen and examined this AM with Dr. Nugent. Pt reports feeling better and he continues to have drainage from I & D. Afebrile. Vitals noted. No new labs noted PE Gen: Pt laying in bed in NAD Skin: warm and dry, see Rectal Resp: (-) tachypnea Rectal: Area of incision and drainage on Left buttock with scant purulent output, less induration, (+) mild tenderness, (-) erythema. A/P Left buttock abscess Continue drsg changes prn when soiled Continue Sitz baths Pt cleared from surgical standpoint for discharge Pt to go home on Bactrim DS x 5 days Follow up with Dr. Nugent in office in 7-10 days, information provided to pt. Objective - Vital Signs/Intake and Output Vital Signs (last 24 hours): Temp Pulse Resp BP Pulse Ox 97.8 F 92 H 20 107/75 98 01/07/19 07:51 01/07/19 07:51 01/07/19 07:51 01/07/19 07:51 01/07/19 07:51 - Medications Medications: Current Medications Docusate Sodium (Colace) 100 mg PO BID ANDRÉS Last Admin: 01/06/19 17:07 Dose: 100 mg Vancomycin HCl 1 gm/ Sodium (Chloride) 250 mls @ 166.667 mls/hr IVPB Q12 ANDRÉS; Protocol Last Admin: 01/07/19 09:32 Dose: 166.667 mls/hr Piperacillin Sod/Tazobactam (Sod 3.375 gm/ Sodium Chloride) 100 mls @ 100 mls /hr IVPB Q6 ANDRÉS; Protocol Last Admin: 01/07/19 04:59 Dose: 100 mls/hr Oxycodone/Acetaminophen (Percocet 5/325 Mg Tab) 1 tab PO Q4 PRN PRN Reason: Pain, moderate (4-7) Stop: 01/09/19 11:50 Last Admin: 01/07/19 09:39 Dose: 1 tab Oxycodone/Acetaminophen (Percocet 5/325 Mg Tab) 1 tab PO Q4 PRN PRN Reason: Pain, Mild (1-3) Stop: 01/09/19 12:00 Oxycodone/Acetaminophen (Percocet 5/325 Mg Tab) 1 tab PO Q4 PRN PRN Reason: Pain, severe (8-10) Stop: 01/09/19 12:01 - Labs Labs: 01/05/19 12:53 01/05/19 12:53
--- NOTE | 2019-01-07 13:59 | CP.PCM.DIS ---
Provider - Provider Date of Admission: 01/05/19 15:53 Attending physician: Yaniv Miles MD Consults: 01/05/19 18:57 General Surgery Consult Routine Comment: rectal cellulitis Consulting Provider: Robert Schmidt Consulting Physician: Robert Schmidt Reason for Consult: cellulitis Diagnosis - Discharge Diagnosis (1) Cellulitis of buttock Status: Acute Priority: High (2) Constipation Status: Acute Priority: High Hospital Course - Lab Results Lab Results: Micro Results 01/05/19 12:53 Blood-Venous Blood Culture - Preliminary NO GROWTH AFTER 48 HOURS 01/06/19 09:00 Buttock Gram Stain - Final 01/06/19 09:00 Buttock Wound Culture - Preliminary Gram Positive Cocci Most Recent Lab Values WBC 8.7 K/uL (4.8-10.8) D 01/05/19 12:53 RBC 4.28 Mil/uL (4.40-5.90) L 01/05/19 12:53 Hgb 13.0 g/dL (12.0-18.0) 01/05/19 12:53 Hct 39.2 % (35.0-51.0) 01/05/19 12:53 MCV 91.6 fl (80.0-94.0) D 01/05/19 12:53 MCH 30.3 pg (27.0-31.0) 01/05/19 12:53 MCHC 33.0 g/dL (33.0-37.0) 01/05/19 12:53 RDW 14.3 % (11.5-14.5) 01/05/19 12:53 Plt Count 174 K/uL (130-400) D 01/05/19 12:53 MPV 7.8 fl (7.2-11.7) 01/05/19 12:53 Neut % (Auto) 61.3 % (50.0-75.0) 01/05/19 12:53 Lymph % (Auto) 28.6 % (20.0-40.0) 01/05/19 12:53 [place] % (Auto) 7.4 % (0.0-10.0) 01/05/19 12:53 Eos % (Auto) 2.0 % (0.0-4.0) 01/05/19 12:53 Baso % (Auto) 0.7 % (0.0-2.0) 01/05/19 12:53 Neut # (Auto) 5.3 K/uL (1.8-7.0) 01/05/19 12:53 Lymph # (Auto) 2.5 K/uL (1.0-4.3) 01/05/19 12:53 [place] # (Auto) 0.6 K/uL (0.0-0.8) 01/05/19 12:53 Eos # (Auto) 0.2 K/uL (0.0-0.7) 01/05/19 12:53 Baso # (Auto) 0.1 K/uL (0.0-0.2) 01/05/19 12:53 Sodium 141 mmol/l (132-148) 01/05/19 12:53 Potassium 3.7 MMOL/L (3.6-5.0) 01/05/19 12:53 Chloride 102 mmol/L (98-107) 01/05/19 12:53 Carbon Dioxide 26 mmol/L (22-30) 01/05/19 12:53 Anion Gap 17 (10-20) 01/05/19 12:53 BUN 10 mg/dl (9-20) 01/05/19 12:53 Creatinine 0.9 mg/dl (0.8-1.5) 01/05/19 12:53 Est GFR ( Amer) > 60 01/05/19 12:53 Est GFR (Non-Af Amer) > 60 01/05/19 12:53 Random Glucose 114 mg/dL (75-110) H 01/05/19 12:53 Calcium 8.9 mg/dL (8.4-10.2) 01/05/19 12:53 Total Bilirubin 0.6 mg/dl (0.2-1.3) 01/05/19 12:53 AST 35 U/L (17-59) 01/05/19 12:53 ALT 20 U/L (21-72) L D 01/05/19 12:53 Alkaline Phosphatase 84 U/L (38-126) 01/05/19 12:53 Total Protein 8.1 G/DL (6.3-8.2) 01/05/19 12:53 Albumin 3.8 g/dL (3.5-5.0) 01/05/19 12:53 Globulin 4.3 gm/dL (2.2-3.9) H 01/05/19 12:53 Albumin/Globulin Ratio 0.9 (1.0-2.1) L 01/05/19 12:53 Urine Opiates Screen Negative (NEGATIVE) 01/05/19 12:53 Urine Methadone Screen Negative (NEGATIVE) 01/05/19 12:53 Ur Barbiturates Screen Negative (NEGATIVE) 01/05/19 12:53 Ur Phencyclidine Scrn Negative (NEGATIVE) 01/05/19 12:53 Ur Amphetamines Screen Negative (NEGATIVE) 01/05/19 12:53 U Benzodiazepines Scrn Negative (NEGATIVE) 01/05/19 12:53 U Oth Cocaine Metabols Negative (NEGATIVE) 01/05/19 12:53 U Cannabinoids Screen Negative (NEGATIVE) 01/05/19 12:53 Discharge Exam - Head Exam Head Exam: NORMAL INSPECTION Discharge Plan - Discharge Medications Prescriptions: Sulfamethoxazole/Trimethoprim [Bactrim DS 800 mg-160 mg] 1 tab PO Q12 #14 tab - Follow Up Plan Condition: FAIR Disposition: HOME/ ROUTINE Instructions: Abscess Incision and Drainage (DC), Cellulitis (Skin Infection), Adult (DC), How to Do a Sitz Bath Additional Instructions: change dresssing as needed follow up with dr tamayo 7-10 days continue with sitz bath follow up with dr schmidt in 1 week Referrals: [facility] [Outside] Robert Schmidt MD [Staff Provider] - Ramin Tamayo MD [Medical Doctor] -
== END 2019-01-07 15:02 | disposition home or self-care (01) | DRG 278 ==
LOC: H.ER 12:14 → H.ERHOLD 15:53 → H.MEDSURG1 17:50
PROVIDERS: ADMIT Internal Medicine Pulmonary Disease; ATTEND Internal Medicine Pulmonary Disease
PROC: 3E0234Z Introduction of Serum, Toxoid and Vaccine into Muscle, Percutaneous Approach (ICD-10-PCS; 2019-01-05)
PROC: 0Y913ZZ Drainage of Left Buttock, Percutaneous Approach (ICD-10-PCS; principal; 2019-01-06)
DX: L02.31 Cutaneous abscess of buttock (principal); F17.210 Nicotine dependence, cigarettes, uncomplicated; K59.00 Constipation, unspecified; L03.317 Cellulitis of buttock; Z23 Encounter for immunization; F32.9 Major depressive disorder, single episode, unspecified

== ENCOUNTER 2019-01-15 16:57 | Emergency (ER) | payer OTHER ==
[2019-01-15 16:57] VITALS: BMI 25.2
[2019-01-15 17:02] VITALS: TEMP 97.5; O2SAT 98
--- NOTE | 2019-01-15 18:39 | ED PDOC ---
HPI: Psych/Substance Abuse Time Seen by Provider: 01/15/19 17:23 Chief Complaint (Nursing): Alcohol Ingestion Chief Complaint (Provider): Alcohol Ingestion History Per: Patient History/Exam Limitations: intoxication Additional Complaint(s): Becky Smith is a 43 year old male with a past medical history of alcohol abuse, who presents to the emergency department after being found intoxicated at the path station by the EMS. Patient admits to drinking alcohol today, stating that he had too much. He currently states that he feels well. Patient denies having any fall, nausea, head trauma or dizziness but does have left gluteal pain. He has been recently admitted for a gluteal abscess on his left side. Patient further denies SI, HI, auditory or visual hallucinations, fever or chills. PMD: No provider Past Medical History Reviewed: Historical Data, Nursing Documentation, Vital Signs Vital Signs: Last Vital Signs Temp 97.5 F L 01/15/19 17:00 Pulse 95 H 01/15/19 17:00 Resp 18 01/15/19 17:00 BP 141/87 01/15/19 17:00 Pulse Ox 98 01/15/19 17:00 - Medical History PMH: Depression Denies: Diabetes, Emphysema, Hepatitis, HIV, HTN, Chronic Kidney Disease, Seizures, Sexually Transmitted Disease - Surgical History Surgical History: No Surg Hx - Family History Family History: States: Unknown Family Hx - Immunization History Hx Tetanus Toxoid Vaccination: No (will update this visit) Hx Influenza Vaccination: Yes Hx Pneumococcal Vaccination: No - Home Medications Home Medications: Ambulatory Orders Medication Instructions Recorded Naproxen [Naprosyn] 500 mg PO Q12H #20 tab 12/31/18 Docusate [Colace] 100 mg PO BID cap 01/07/19 Sulfamethoxazole/Trimethoprim 1 tab PO Q12 #14 tab 01/07/19 [Bactrim DS 800 mg-160 mg] Ibuprofen [Motrin Tab] 600 mg PO Q6 PRN 7 Days tab 01/15/19 - Allergies Allergies/Adverse Reactions: Allergies Allergy/AdvReac Type Severity Reaction Status Date / Time No Known Allergies Allergy Verified 01/15/19 17:07 Review of Systems ROS Statement: Except As Marked, All Systems Reviewed And Found Negative Constitutional: Negative for: Fever, Chills Gastrointestinal: Negative for: Nausea Musculoskeletal: Positive for: Other (left gluteal pain) Physical Exam - Reviewed Nursing Documentation Reviewed: Yes Vital Signs Reviewed: Yes - Physical Exam Appears: Positive for: Non-toxic, No Acute Distress Head Exam: Positive for: ATRAUMATIC, NORMOCEPHALIC Eye Exam: Positive for: Conjunctival injection (bilateral) Back: Positive for: Other (left medial buttock with 0.5 ulceration; (-) purulent drainage, induration, erythema, or edema) Neurologic/Psych: Positive for: Alert, Oriented (x3), Other (speaking full sentences) - ECG O2 Sat by Pulse Oximetry: 98 (RA) Pulse Ox Interpretation: Normal Medical Decision Making Medical Decision Making: Time: 1831 Plan: --Accucheck --Ibuprofen 600 mg PO Accucheck: 103 21:59: ambulating with steady gait. speaking coherently. Stable for d/c home with return instructions given for prior gluteal abscess. Scribe Attestation: Documented by Rios Monaco, acting as a scribe for Marilia Brown PA-C. Provider Scribe Attestation: All medical record entries made by the Scribe were at my direction and personally dictated by me. I have reviewed the chart and agree that the record accurately reflects my personal performance of the history, physical exam, medical decision making, and the department course for this patient. I have also personally directed, reviewed, and agree with the discharge instructions and disposition. Disposition - Clinical Impression Clinical Impression: Alcohol abuse with alcohol-induced disorder - Patient ED Disposition Is Patient to be Admitted: No Counseled Patient/Family Regarding: Studies Performed, Diagnosis, Need For Followup - Disposition Referrals: Alcoholics Anonymous [Outside] Disposition: Routine/Home Disposition Time: 21:59 Condition: STABLE Additional Instructions: You are advised to refrain from further alcohol use. Keep buttock lesion clean and dry. Change dressings daily until healed. Return to ER if you develop redness, pus drainage, or fevers. Prescriptions: Ibuprofen [Motrin Tab] 600 mg PO Q6 PRN 7 Days tab PRN Reason: Pain, Moderate (4-7) Instructions: Alcohol Abuse and Alcoholism (DC) Forms: [facility] (Macedonian) Print Language: ERITREAN
[2019-01-15 22:44] VITALS: BP 107/65; PULSE 84; RESP 19
== END 2019-01-15 22:44 | disposition home or self-care (01) ==
LOC: H.ER 16:57
DX: F10.129 Alcohol abuse with intoxication, unspecified (principal); F32.9 Major depressive disorder, single episode, unspecified

== ENCOUNTER 2019-02-23 07:27 | Inpatient (IN) | payer OTHER ==
[2019-02-23 07:35] VITALS: BMI 25.0
[2019-02-23] MEDS ORDERED: Piperacillin/Tazobact 3.375 GM in Sodium Chloride 0.9% 100 ML IV STA (08:11)
--- NOTE | 2019-02-23 08:12 | ED PDOC ---
HPI: General Adult Time Seen by Provider: 02/23/19 07:29 Chief Complaint (Nursing): Abnormal Skin Integrity Chief Complaint (Provider): Right buttock pain History Per: Patient History/Exam Limitations: no limitations Onset/Duration Of Symptoms: Days Have you had recent travel within the past 21 days to any of the following countries: [place], [place], [place] or [place]?: No Current Symptoms Are (Timing): Still Present Severity: Moderate Pain Scale Rating Of: 8 Additional History Per: Patient Additional Complaint(s): 43yo male with history of depression, recent surgery for a left sided gluteal abscess, comes to ER reporting pain to his right buttock x 3-4 days. He states when he first had the pain 1 month ago, he was seen in the ER, given antibiotics and discharged home; patient returned as the antibiotics did not improve his symptoms and had surgical intervention. He states the symptoms now are similar to the prior instance, and was concerned as he noted blood from . Otherwise, no fever, chills, chest pain, shortness of breath, vomiting, diarrhea, or abdominal pain. PMD: None provided Past Medical History Reviewed: Historical Data, Nursing Documentation, Vital Signs Vital Signs: Last Vital Signs Temp 98.3 F 02/23/19 07:34 Pulse 111 H 02/23/19 07:34 Resp 18 02/23/19 07:34 BP 148/89 02/23/19 07:34 Pulse Ox 98 02/23/19 07:34 - Medical History PMH: Depression Denies: Diabetes, Emphysema, Hepatitis, HIV, HTN, Chronic Kidney Disease, Seizures, Sexually Transmitted Disease - Surgical History Other surgeries: left gluteal abscess surgery - Family History Family History: States: Unknown Family Hx - Immunization History Hx Tetanus Toxoid Vaccination: No (will update this visit) Hx Influenza Vaccination: Yes Hx Pneumococcal Vaccination: No - Home Medications Home Medications: Ambulatory Orders Medication Instructions Recorded Naproxen [Naprosyn] 500 mg PO Q12H #20 tab 12/31/18 Docusate [Colace] 100 mg PO BID cap 01/07/19 Sulfamethoxazole/Trimethoprim 1 tab PO Q12 #14 tab 01/07/19 [Bactrim DS 800 mg-160 mg] Ibuprofen [Motrin Tab] 600 mg PO Q6 PRN 7 Days tab 01/15/19 - Allergies Allergies/Adverse Reactions: Allergies Allergy/AdvReac Type Severity Reaction Status Date / Time No Known Allergies Allergy Verified 01/15/19 17:07 Review of Systems ROS Statement: Except As Marked, All Systems Reviewed And Found Negative Constitutional: Negative for: Fever, Chills Cardiovascular: Negative for: Chest Pain Respiratory: Negative for: Shortness of Breath Gastrointestinal: Positive for: Other (right buttock pain; blood per rectum). Negative for: Nausea, Vomiting, Abdominal Pain, Diarrhea Physical Exam - Reviewed Nursing Documentation Reviewed: Yes Vital Signs Reviewed: Yes - Physical Exam Appears: Positive for: Non-toxic, No Acute Distress Head Exam: Positive for: ATRAUMATIC, NORMAL INSPECTION, NORMOCEPHALIC Skin: Positive for: Normal Color Eye Exam: Positive for: Normal appearance Neck: Positive for: Supple Cardiovascular/Chest: Positive for: Regular Rate, Rhythm. Negative for: Tachycardia Respiratory: Positive for: Normal Breath Sounds. Negative for: Respiratory Dist ress Gastrointestinal/Abdominal: Positive for: Normal Exam, Soft. Negative for: Tenderness, Guarding, Rebound Back: Positive for: Normal Inspection Rectal: Positive for: Tenderness (medial right gluteus with moderate tenderness, fluctuant area 3cm in daimeter. No gross discharge; healed abscess to left medial gluteus, mild tenderness to palpation) Extremity: Positive for: Normal ROM Neurological/Psych: Positive for: Awake, Alert, Oriented (x 3) - Laboratory Results Result Diagrams: 02/23/19 08:30 02/23/19 08:30 Interpretation Of Abn Labs: no acute - ECG O2 Sat by Pulse Oximetry: 98 (RA) Pulse Ox Interpretation: Normal - Progress ED Course And Treament: 1400: Spoke with Dr. North. Will admit. Surgery consulted. Medical Decision Making Medical Decision Makinyo with gluteal pain, history of left gluteal abscess Plan: 0810 CAse discussed with surgical coordinator CT Pelvis ordered IV Antibiotics started 1252 CT Pelvis FINDINGS: BLADDER: Unremarkable. No mass. REPRODUCTIVE ORGANS: Unremarkable. VISUALIZED BOWEL: Unremarkable. PERITONEUM: Unremarkable, as visualized. No free fluid. No free air. LYMPH NODES: Mild bilateral inguinal lymphadenopathy is appreciated including 3.7 x 1.0 cm left inguinal lymph node and a 2.5 x 1.3 cm right inguinal lymph node. Numerous small lymph nodes are also encountered bilaterally. VASCULATURE: No aortic atherosclerotic calcification or mural plaque present. BONES: No fracture or focal lesion. OTHER FINDINGS: There is a inferomedial buttock area of increased density within the superficial subcutaneous fat separate from the anus measuring 4.7 x 1.7 cm (anteroposterior by transverse dimensions). No peripheral enhancement is associated and central lucency is in apparent as well suggesting that this is phlegmon rather than abscess. Further, there is a small fluid collection identified at the left inguinal canal measuring 3.3 x 2.2 cm. There is also no peripheral enhancement associated with this and the etiology is unclear but this is also not suggestive of an abscess. IMPRESSION: Inferior medial right buttocks phlegmon is identified measuring 4.7 x 1.7 cm rat her than abscess. The finding does not appear to encroach the anal peripheral margins and there is a small left inguinal fluid collection which also does not appear to be abscess. No emphysematous soft tissue changes are seen related to either focus. Mild bilateral inguinal lymphadenopathy identified. ScribeAttestation: Documented byKhalida Durbin, acting as a scribe for Yayo Jain MD. Provider ScribeAttestation: All medical record entries made by the Scribe were at my direction and personally dictated by me. I have reviewed the chart and agree that the record accurately reflects my personal performance of the history, physical exam, medical decision making, and the department course for this patient. I have also personally directed, reviewed, and agree with the discharge instructions and disposition. Disposition - Clinical Impression Clinical Impression: Perirectal cellulitis, Abscess - Patient ED Disposition Is Patient to be Admitted: Yes Counseled Patient/Family Regarding: Studies Performed, Diagnosis - Disposition Disposition Time: 08:00 Condition: FAIR - Pt Status Changed To: Hospital Disposition Of: Inpatient - Admit Certification Admit to Inpatient:: After my assessment, the patient will require hospitalization for at least two midnights. This is because of the severity of symptoms shown, intensity of services needed, and/or the medical risk in this patient being treated as an outpatient. - POA Present On Arrival: None
--- NOTE | 2019-02-23 08:12 | CP.PCM.CON ---
<Maximiliano Jones - Last Filed: 02/23/19 16:26> History of Present Illness - History of Present Illness History of Present Illness: General Surgery Note for Dr. Carter Reason for consult: perianal abscess 43 M with PMH that includes depression, recent left sided gluteal abscess s/p I&D, substance abuse presents to [facility] for right gluteal pain for 3-4 days. Patient was seen and evaluated in the ED. Patient states when he first had the pain 1 month ago. He was seen in the ER and discharged with antibiotics. Patient returned a few days later and required I&D of the abscess. Patient rates pain as severe and located on the right side of the gluteal fold. He has noticed pururent and bloody drainage from the left side. The right side is now bothering him and he denies drainage from that side. Denies fever/chills, cp, SOB, abd pain, n/v/d, constipation, or urinary symptoms. PMD: denies PMH: depression, recent left sided gluteal abscess s/p I&D, substance abuse PSH: I&D of left sided gluteal abscess ALL: NKDA Social: history of EtOH and drug abuse Review of Systems - Review of Systems All systems: reviewed and no additional remarkable complaints except (as per HPI) Past Patient History - Past Medical History & Family History Past Medical History?: Yes - Past Social History Smoking Status: Light Smoker < 10 Cigarettes Daily - CARDIAC Hx Cardiac Disorders: No Hx Hypertension: No - PULMONARY Hx Respiratory Disorders: No Hx Emphysema: No - NEUROLOGICAL Hx Neurological Disorder: No Hx Seizures: No - HEENT Hx HEENT Problems: No - RENAL Hx Chronic Kidney Disease: No - ENDOCRINE/METABOLIC Hx Endocrine Disorders: No - HEMATOLOGICAL/ONCOLOGICAL Hx Blood Disorders: No Hx Human Immunodeficiency Virus (HIV): No - INTEGUMENTARY Hx Dermatological Problems: No - MUSCULOSKELETAL/RHEUMATOLOGICAL Hx Musculoskeletal Disorders: No Hx Falls: No - GASTROINTESTINAL Hx Gastrointestinal Disorders: No - GENITOURINARY/GYNECOLOGICAL Hx Genitourinary Disorders: No Hx Sexually Transmitted Disorders: No - PSYCHIATRIC Hx Psychophysiologic Disorder: Yes Hx Depression: Yes Hx Substance Use: No - SURGICAL HISTORY Hx Surgeries: Yes Other/Comment: Coccyx surgery. - ANESTHESIA Hx Anesthesia: Yes Hx Anesthesia Reactions: No Hx Malignant Hyperthermia: No Meds Allergies/Adverse Reactions: Allergies Allergy/AdvReac Type Severity Reaction Status Date / Time No Known Allergies Allergy Verified 01/15/19 17:07 Physical Exam - Constitutional Appears: Non-toxic, No Acute Distress - Head Exam Head Exam: ATRAUMATIC, NORMOCEPHALIC - Eye Exam Eye Exam: EOMI, Normal appearance Pupil Exam: PERRL - ENT Exam ENT Exam: Mucous Membranes Dry - Respiratory Exam Respiratory Exam: NORMAL BREATHING PATTERN - Cardiovascular Exam Cardiovascular Exam: REGULAR RHYTHM - GI/Abdominal Exam GI & Abdominal Exam: Normal Bowel Sounds, Soft. absent: Distended, Firm, Guarding, Hernia, Rebound, Rigid, Tenderness - Rectal Exam Additional comments: normal tone, no evidence of induration/fluctuance/masses, smooth mendosa, normal feeling prostate Left side wound from previous I&D, alomst appears as fistula but no drainage expressed Right side with 3 x 2 cm area of erythema, induration and mild fluctuance - Extremities Exam Extremities exam: Positive for: normal capillary refill, pedal pulses present. Negative for: calf tenderness - Back Exam Back exam: absent: CVA tenderness (L), CVA tenderness (R) - Neurological Exam Neurological exam: Alert, CN II-XII Intact, Oriented x3 - Psychiatric Exam Psychiatric exam: Normal Affect, Normal Mood - Skin Skin Exam: Dry, Warm Results - Vital Signs Recent Vital Signs: Last Vital Signs Temp 98.3 F 02/23/19 07:34 Pulse 111 H 02/23/19 07:34 Resp 18 02/23/19 07:34 BP 148/89 02/23/19 07:34 Pulse Ox 98 02/23/19 07:34 - Labs Result Diagrams: 02/23/19 08:30 02/23/19 08:30 Assessment & Plan - Assessment and Plan (Free Text) Assessment: 43M who presents with right perianal abscess Plan: -NPO -IVF -IV abx -f/u labs -f/u CT pelvis report -Pain control -warm compresses -Recommend GI consult for rectal bleeding -Discussed with Dr. Emma Jones PGY2 - Date & Time Date: 02/23/19 Time: 09:30 <Silvio Carter - Last Filed: 03/01/19 17:32> Results - Vital Signs Recent Vital Signs: Last Vital Signs Temp 98.3 F 03/01/19 08:45 Pulse 80 03/01/19 08:45 Resp 20 03/01/19 08:45 BP 109/66 03/01/19 08:45 Pulse Ox 98 03/01/19 08:45 - Labs Result Diagrams: 02/27/19 06:00 02/27/19 06:00 Labs: Laboratory Results - last 24 hr 02/27/19 06:00 Mumps Virus IgG Ab 157.00 Rubella IgG Antibody 2.74 Rubeola (Measles) IgG >300.00 VZV IgG Antibody 548.80 Assessment & Plan - Assessment and Plan (Free Text) Plan: All medical record entries made by the resident were at my direction. I have re viewed the chart and agree that the record accurately reflects my personal performance of the history, physical exam, and medical decision making.
[2019-02-23] MEDS ORDERED: Vancomycin 1 g Inj ONE ×2 (08:20→19:52)
[2019-02-23] MEDS: Sodium Chloride 0.9% 1,000 ML IV STA ×2 (08:34→13:02)
[2019-02-23 08:53] LABS: BASO # 0.1 K/uL (0.0-0.2); BASO % 1.2 % (0.0-2.0); EOS # 0.1 K/uL (0.0-0.7); EOS % 1.1 % (0.0-4.0); HEMOGLOBIN 12.8 g/dL (12.0-18.0); LYMPH % 16.1 % (20.0-40.0); MEAN CELL VOLUME 92.1 fl (80.0-94.0); MEAN CORPUSCULAR HEMOGLOBIN 30.6 pg (27.0-31.0); MEAN CORPUSCULAR HGB CONC 33.2 g/dL (33.0-37.0); MEAN PLATELET VOLUME 8.4 fl (7.2-11.7); MONO # 0.8 K/uL (0.0-0.8); MONO % 12.6 % (0.0-10.0); NEUT # 4.2 K/uL (1.8-7.0); NRBC % 0.1 % (0.0-0.0); RBC 4.18 Mil/uL (4.40-5.90); RED CELL DISTRIBUTION WIDTH 14.3 % (11.5-14.5)
[2019-02-23 08:55] LABS: INR 1.1; PROTHROMBIN TIME 12.8 Seconds (9.8-13.1)
[2019-02-23 09:01] LABS: ALBUMIN 4.6 g/dL (3.5-5.0); ALT/SGPT 46 U/L (21-72); AST/SGOT 67 U/L (17-59); BLOOD UREA NITROGEN 16 mg/dl (9-20); CALCIUM 10.1 mg/dL (8.4-10.2); GFR NON-AFRICAN AMERICAN > 60
[2019-02-23 10:19] LABS: VENOUS BLOOD GAS BASE EXCESS 1.2 mmol/L (0.0-2.0); VENOUS BLOOD GAS PCO2 44 mmHg (40-60); VENOUS BLOOD GAS PO2 43 mm/Hg (30-55); VENOUS BLOOD PH 7.39 (7.32-7.43)
[2019-02-23] MEDS ORDERED: Piperacillin/Tazobact 3.375 gm Inj IVPB ONE ×2 (10:32→18:03)
[2019-02-23] MEDS ORDERED: Iohexol 300 100 ML IJ ONE (11:32)
--- NOTE | 2019-02-23 12:06 | CT ---
Date of service: 02/23/2019 PROCEDURE: CT Pelvis with contrast HISTORY: pain and possible abscess COMPARISON: None available. TECHNIQUE: Contiguous axial images of the pelvis with contrast. Coronal and sagittal reformats generated. Contrast dose: Radiation dose: Total exam DLP = 375.12 mGy-cm. This CT exam was performed using one or more of the following dose reduction techniques: Automated exposure control, adjustment of the mA and/or kV according to patient size, and/or use of iterative reconstruction technique. FINDINGS: BLADDER: Unremarkable. No mass. REPRODUCTIVE ORGANS: Unremarkable. VISUALIZED BOWEL: Unremarkable. PERITONEUM: Unremarkable, as visualized. No free fluid. No free air. LYMPH NODES: Mild bilateral inguinal lymphadenopathy is appreciated including 3.7 x 1.0 cm left inguinal lymph node and a 2.5 x 1.3 cm right inguinal lymph node. Numerous small lymph nodes are also encountered bilaterally. VASCULATURE: No aortic atherosclerotic calcification or mural plaque present. BONES: No fracture or focal lesion. OTHER FINDINGS: There is a inferomedial buttock area of increased density within the superficial subcutaneous fat separate from the anus measuring 4.7 x 1.7 cm (anteroposterior by transverse dimensions). No peripheral enhancement is associated and central lucency is in apparent as well suggesting that this is phlegmon rather than abscess. Further, there is a small fluid collection identified at the left inguinal canal measuring 3.3 x 2.2 cm. There is also no peripheral enhancement associated with this and the etiology is unclear but this is also not suggestive of an abscess. IMPRESSION: Inferior medial right buttocks phlegmon is identified measuring 4.7 x 1.7 cm rather than abscess. The finding does not appear to encroach the anal peripheral margins and there is a small left inguinal fluid collection which also does not appear to be abscess. No emphysematous soft tissue changes are seen related to either focus. Mild bilateral inguinal lymphadenopathy identified.
[2019-02-23] MEDS: Lactated Ringer's 1,000 ML IV SCH ×2 (13:00→18:04)
[2019-02-23] MEDS ORDERED: Morphine 4 MG/ML VIAL IV ONE (13:18)
[2019-02-23] MEDS ORDERED: Morphine 4 MG/ML VIAL ONE (13:32)
[2019-02-23 16:42] LABS: HEPATITIS B SURFACE AG Negative (NEGATIVE)
[2019-02-23 16:49] LABS: HEPATITIS A IGM NEGATIVE (NEGATIVE); HEPATITIS B CORE AB NEGATIVE (NEGATIVE)
[2019-02-23 17:00] LABS: HEPATITIS C ANTIBODY NEGATIVE (NEGATIVE)
[2019-02-23] MEDS: Piperacillin/Tazobact 3.375 GM in Sodium Chloride 0.9% 100 ML IVPB SCH ×2 (18:05→23:13)
[2019-02-24] MEDS: Lactated Ringer's 1,000 ML IV SCH ×3 (01:33→16:34)
[2019-02-24] MEDS: Piperacillin/Tazobact 3.375 GM in Sodium Chloride 0.9% 100 ML IVPB SCH ×4 (04:33→22:47)
[2019-02-24 06:58] LABS: ALB/GLOB RATIO 0.9 (1.0-2.1); ALBUMIN 3.7 g/dL (3.5-5.0); ALT/SGPT 39 U/L (21-72); AST/SGOT 52 U/L (17-59); BLOOD UREA NITROGEN 9 mg/dl (9-20); CALCIUM 9.1 mg/dL (8.4-10.2); GFR NON-AFRICAN AMERICAN > 60
[2019-02-24 07:03] LABS: BASO # 0.1 K/uL (0.0-0.2); BASO % 0.9 % (0.0-2.0); EOS # 0.2 K/uL (0.0-0.7); EOS % 2.8 % (0.0-4.0); HEMOGLOBIN 13.1 g/dL (12.0-18.0); LYMPH # 1.3 K/uL (1.0-4.3); LYMPH % 22.3 % (20.0-40.0); MEAN CELL VOLUME 93.1 fl (80.0-94.0); MEAN CORPUSCULAR HEMOGLOBIN 31.3 pg (27.0-31.0); MEAN CORPUSCULAR HGB CONC 33.6 g/dL (33.0-37.0); MEAN PLATELET VOLUME 8.7 fl (7.2-11.7); MONO # 0.8 K/uL (0.0-0.8); MONO % 12.6 % (0.0-10.0); NEUT # 3.7 K/uL (1.8-7.0); NEUT % 61.4 % (50.0-75.0); NRBC % 0.1 % (0.0-0.0); RBC 4.18 Mil/uL (4.40-5.90); RED CELL DISTRIBUTION WIDTH 13.8 % (11.5-14.5)
--- NOTE | 2019-02-24 12:05 | CP.PCM.PN ---
<Erika Brooks - Last Filed: 02/24/19 15:29> Subjective - Date & Time of Evaluation Date of Evaluation: 02/24/19 Time of Evaluation: 12:05 - Subjective Subjective: General Surgery Progress Note: Dr. Carter Patient seen and examined at bedside this morning. Patient resting comfortably and in NAD. No acute events overnight. Patient reports continued pain to right gluteal fold, however no reported pain to left side. He does not report any new purulence or sanginous drainage from the area this morning. Denies nausea/vomit ing/fever/chills/abdominal pain/diarrhea/constipation. Objective - Vital Signs/Intake and Output Vital Signs (last 24 hours): Temp Pulse Resp BP Pulse Ox 98.3 F 72 18 126/83 99 02/24/19 08:06 02/24/19 08:06 02/24/19 08:06 02/24/19 08:06 02/24/19 08:06 - Medications Medications: Current Medications Acetaminophen (Tylenol 325mg Tab) 650 mg PO Q6 PRN PRN Reason: Pain, Mild (1-3) Lactated Ringer's (Lactated Ringer's) 1,000 mls @ 125 mls/hr IV .Q8H ANDRÉS Last Admin: 02/24/19 04:34 Dose: 125 mls/hr Vancomycin HCl 1 gm/ Sodium (Chloride) 250 mls @ 166.667 mls/hr IVPB Q12H ANDRÉS; Protocol Last Admin: 02/24/19 08:57 Dose: 166.667 mls/hr Piperacillin Sod/Tazobactam (Sod 3.375 gm/ Sodium Chloride) 100 mls @ 100 mls/hr IVPB Q6 ANDRÉS; Protocol Last Admin: 02/24/19 09:06 Dose: 100 mls/hr Ketorolac Tromethamine (Toradol) 30 mg IVP Q6 PRN PRN Reason: Pain, severe (8-10) Last Admin: 02/24/19 11:53 Dose: 30 mg - Labs Labs: 02/24/19 06:05 02/24/19 06:05 PT 12.8 Seconds (9.8-13.1) 02/23/19 08:30 INR 1.1 02/23/19 08:30 APTT 37.0 Seconds (25.6-37.1) 02/23/19 08:30 - Constitutional Appears: Non-toxic, No Acute Distress - Head Exam Head Exam: ATRAUMATIC, NORMOCEPHALIC - Eye Exam Pupil Exam: NORMAL ACCOMODATION - ENT Exam ENT Exam: Mucous Membranes Moist - Respiratory Exam Respiratory Exam: NORMAL BREATHING PATTERN - Cardiovascular Exam Cardiovascular Exam: REGULAR RHYTHM - GI/Abdominal Exam GI & Abdominal Exam: Soft, Normal Bowel Sounds. absent: Tenderness - Rectal Exam Additional comments: Left side: wound from previous I&D Right side: 3x2 cm area of erythema, with induration and mild fluctuance appreciated - Extremities Exam Extremities Exam: Normal Capillary Refill. absent: Calf Tenderness - Back Exam Back Exam: absent: CVA tenderness (L), CVA tenderness (R) - Neurological Exam Neurological Exam: Alert, Awake Assessment and Plan - Assessment and Plan (Free Text) Assessment: 43 year old male patient with right perianal abscess Plan: - Regular diet - Continue with broad spectrum IV abx - f/u labs, serology negative/non-reactive - CT pelvis report; Inferior medial right buttocks phlegmon measuring 4.7 x 1.7 cm rather than abscess - Continue with pain control - Warm compresses - ID consult, reccs appreciated - Recommend GI consult for rectal bleeding - Further reccs per Dr. Carter <Silvio Carter - Last Filed: 03/01/19 17:28> Objective - Vital Signs/Intake and Output Vital Signs (last 24 hours): Temp Pulse Resp BP Pulse Ox 98.3 F 80 20 109/66 98 03/01/19 08:45 03/01/19 08:45 03/01/19 08:45 03/01/19 08:45 03/01/19 08:45 - Labs Labs: 02/27/19 06:00 02/27/19 06:00 PT 12.8 Seconds (9.8-13.1) 02/23/19 08:30 INR 1.1 02/23/19 08:30 APTT 37.0 Seconds (25.6-37.1) 02/23/19 08:30 Assessment and Plan - Assessment and Plan (Free Text) Plan: All medical record entries made by the resident were at my direction. I have reviewed the chart and agree that the record accurately reflects my personal performance of the history, physical exam, and medical decision making.
--- NOTE | 2019-02-24 14:00 | CP.PCM.CON ---
History of Present Illness - History of Present Illness History of Present Illness: 43 M presents to [facility] for right gluteal pain for 3-4 days. Patient was seen and evaluated in the ED. Patient states when he first had the pain 1 month ago. He was seen in the ER and discharged with antibiotics. Patient returned a few days later and required I&D of the abscess. PMH: depression, recent left sided gluteal abscess s/p I&D, substance abuse PSH: I&D of left sided gluteal abscess ALL: NKDA Social: history of EtOH and drug abuse Review of Systems - Review of Systems All systems: reviewed and no additional remarkable complaints except - Constitutional Constitutional: As Per HPI - EENT Eyes: absent: As Per HPI, Blind Spots, Blurred Vision, Change in Vision, Decreased Night Vision, Diplopia, Discharge, Dry Eye, Exophthalmos, Floaters, Irritation, Itchy Eyes, Loss of Peripheral Vision, Pain, Photophobia, Requires Corrective Lenses, Sees Flashes, Spots in Vision, Tunnel Vision, Other Visual Disturbances, Loss of Vision, Other Ears: absent: As Per HPI, Decreased Hearing, Ear Discharge, Ear Pain, Tinnitus, Abnormal Hearing, Disequilibrium, Dizziness, Other Nose/Mouth/Throat: absent: As Per HPI, Epistaxis, Nasal Congestion, Nasal Discharge, Nasal Obstruction, Nasal Trauma, Nose Pain, Post Nasal Drip, Sinus Pain, Sinus Pressure, Bleeding Gums, Change in Voice, Dental Pain, Dry Mouth, Dysphagia, Halitosis, Hoarsness, Lip Swelling, Mouth Lesions, Mouth Pain, Odynophagia, Sore Throat, Throat Swelling, Tongue Swelling, Facial Pain, Neck Pain, Neck Mass, Other - Cardiovascular Cardiovascular: absent: As Per HPI, Acrocyanosis, Chest Pain, Chest Pain at Rest, Chest Pain with Activity, Claudication, Diaphoresis, Dyspnea, Dyspnea on Exertion, Edema, Irregular Heart Rhythm, Pain Radiating to Arm/Neck/Jaw, Leg Edema, Leg Ulcers, Lightheadedness, Orthopnea, Palpitations, Paroxysmal Nocturnal Dyspnea, Pedal Edema, Radiating Pain, Rapid Heart Rate, Slow Heart Rate, Syncope, Other - Respiratory Respiratory: absent: As Per HPI, Cough, Dyspnea, Hemoptysis, Dyspnea on Exertion, Wheezing, Snoring, Stridor, Pain on Inspiration, Chest Congestion, Excessive Mucous Production, Change in Mucous Color, Pain with Coughing, Other - Gastrointestinal Gastrointestinal: absent: As Per HPI, Abdominal Pain, Belching, Bloating, Change in Bowel Habits, Change in Stool Character, Coffee Ground Emesis, Constipation, Cramping, Diarrhea, Dyspepsia, Dysphagia, Early Satiety, Excessive Flatus, Fecal Incontinence, Heartburn, Hematemesis, Hematochezia, Loose Stools, Melena, Nausea, Odynophagia, Temesmus, Vomiting, Other - Genitourinary Genitourinary: absent: As Per HPI, Change in Urinary Stream, Difficulty Urinating, Dysuria, Flank Pain, Hematuria, Pyuria, Nocturia, Urinary Incontinence, Urinary Frequency, Urinary Hesitance, Urinary Urgency, Voiding Freq/Small Amts, Freq UTI, Hx Renal/Bladder Calculi, Hx /Renal Surgery, Bladder Distension, Other - Musculoskeletal Musculoskeletal: absent: As Per HPI, Abnormal Gait, Arthralgias, Atrophy, Back Pain, Deformity, Joint Swelling, Limited Range of Motion, Loss of Height, Muscle Cramps, Muscle Weakness, Myalgias, Neck Pain, Numbness, Radiating Pain into Limb, Stiffness, Tingling, Other - Integumentary Integumentary: As Per HPI, Skin Pain, Wounds - Neurological Neurological: absent: As Per HPI, Abnormal Gait, Abnormal Hearing, Abnormal Movements, Abnormal Speech, Behavioral Changes, Burning Sensations, Confusion, Convulsions, Disequilibrium, Dizziness, Numbness, Focal Weakness, Frequent Falls, Headaches, Lack of Coordination, Loss of Vision, Memory Loss, Paresthesias, Radicular Pain, Restless Legs, Sensory Deficit, Syncope, Tingling, Tremor, Vertigo, Weakness, Other Visual Disturbances, Other - Psychiatric Psychiatric: absent: As Per HPI, Abnormal Sleep Pattern, Anhedonia, Anxiety, Auditory Hallucinations, Behavioral Changes, Change in Appetite, Change in Libido, Confusion, Depression, Difficulty Concentrating, Hallucinations, Homicidal Ideation, Hopelessness, Irritability, Memory Loss, Mood Swings, Panic Attacks, Paranoia, Suicidal Ideation, Visual Hallucinations, Tactile Hallucinations, Other - Endocrine Endocrine: absent: As Per HPI, Change in Body Appearance, Change in Libido, Cold Intolorance, Deepening of Voice, Excessive Sweating, Fatigue, Flushing, Heat Intolorance, Increase in Ring/Shoe/Hat Size, Palpitations, Polydipsia, Polyphagia, Polyuria, Other - Hematologic/Lymphatic Hematologic: absent: As Per HPI, Easy Bleeding, Easy Bruising, Lymphadenopathy, Other Past Patient History - Past Medical History & Family History Past Medical History?: Yes - Past Social History Smoking Status: Light Smoker < 10 Cigarettes Daily - CARDIAC Hx Cardiac Disorders: No Hx Hypercholesterolemia: No Hx Hypertension: No - PULMONARY Hx Respiratory Disorders: No Hx Asthma: No - NEUROLOGICAL Hx Neurological Disorder: No - HEENT Hx HEENT Problems: No - RENAL Hx Chronic Kidney Disease: No - ENDOCRINE/METABOLIC Hx Endocrine Disorders: No Hx Diabetes Mellitus Type 2: No - HEMATOLOGICAL/ONCOLOGICAL Hx Blood Disorders: No Hx AIDS: No Hx Human Immunodeficiency Virus (HIV): No - INTEGUMENTARY Hx Dermatological Problems: Yes Hx Cellulitis: Yes (was admitted last month for L buttocks cellulitis) - MUSCULOSKELETAL/RHEUMATOLOGICAL Hx Musculoskeletal Disorders: No Hx Falls: No - GASTROINTESTINAL Hx Gastrointestinal Disorders: No - GENITOURINARY/GYNECOLOGICAL Hx Genitourinary Disorders: No - PSYCHIATRIC Hx Psychophysiologic Disorder: Yes Hx Depression: Yes Hx Substance Use: No (denies hx) - SURGICAL HISTORY Hx Surgeries: Yes Other/Comment: states had surgery to L buttocks for abscess last month - ANESTHESIA Hx Anesthesia: Yes Hx Anesthesia Reactions: No Hx Malignant Hyperthermia: No Meds Allergies/Adverse Reactions: Allergies Allergy/AdvReac Type Severity Reaction Status Date / Time No Known Allergies Allergy Verified 01/15/19 17:07 - Medications Medications: Current Medications Acetaminophen (Tylenol 325mg Tab) 650 mg PO Q6 PRN PRN Reason: Pain, Mild (1-3) Lactated Ringer's (Lactated Ringer's) 1,000 mls @ 125 mls/hr IV .Q8H ANDRÉS Last Admin: 02/24/19 04:34 Dose: 125 mls/hr Vancomycin HCl 1 gm/ Sodium (Chloride) 250 mls @ 166.667 mls/hr IVPB Q12H ANDRÉS; Protocol Last Admin: 02/24/19 08:57 Dose: 166.667 mls/hr Piperacillin Sod/Tazobactam (Sod 3.375 gm/ Sodium Chloride) 100 mls @ 100 ml s/hr IVPB Q6 ANDRÉS; Protocol Last Admin: 02/24/19 09:06 Dose: 100 mls/hr Ketorolac Tromethamine (Toradol) 30 mg IVP Q6 PRN PRN Reason: Pain, severe (8-10) Last Admin: 02/24/19 11:53 Dose: 30 mg Physical Exam - Constitutional Appears: Non-toxic, Chronically Ill - Head Exam Head Exam: ATRAUMATIC, NORMOCEPHALIC - Eye Exam Eye Exam: PERRL. absent: Scleral icterus - ENT Exam ENT Exam: Mucous Membranes Dry - Neck Exam Neck exam: Negative for: Lymphadenopathy - Respiratory Exam Respiratory Exam: Decreased Breath Sounds, Clear to Auscultation Bilateral - Cardiovascular Exam Cardiovascular Exam: REGULAR RHYTHM, +S1, +S2 - GI/Abdominal Exam GI & Abdominal Exam: Diminished Bowel Sounds, Soft. absent: Tenderness - Rectal Exam Rectal Exam: Deferred - Exam Exam: NORMAL INSPECTION - Extremities Exam Extremities exam: Positive for: pedal pulses present. Negative for: calf tenderness, pedal edema, tenderness - Back Exam Back exam: absent: CVA tenderness (L), paraspinal tenderness - Neurological Exam Neurological exam: Alert, CN II-XII Intact, Oriented x3, Reflexes Normal - Psychiatric Exam Psychiatric exam: Depressed - Skin Skin Exam: Dry, Erythema Additional comments: right gluteal swelling / induration Results - Vital Signs Recent Vital Signs: Last Vital Signs Temp 98.3 F 02/24/19 08:06 Pulse 72 02/24/19 08:06 Resp 18 02/24/19 08:06 BP 126/83 02/24/19 08:06 Pulse Ox 99 02/24/19 08:06 - Labs Result Diagrams: 02/24/19 06:05 02/24/19 06:05 Labs: Laboratory Results - last 24 hr 02/23/19 02/23/19 02/23/19 10:16 10:21 11:21 WBC RBC Hgb Hct MCV MCH MCHC RDW Plt Count MPV Neut % (Auto) Lymph % (Auto) [place] % (Auto) Eos % (Auto) Baso % (Auto) Neut # (Auto) Lymph # (Auto) [place] # (Auto) Eos # (Auto) Baso # (Auto) ESR Sodium Potassium Chloride Carbon Dioxide Anion Gap BUN Creatinine Est GFR ( Amer) Est GFR (Non-Af Amer) Random Glucose Hemoglobin A1c Calcium Phosphorus Magnesium Total Bilirubin AST ALT Alkaline Phosphatase C-Reactive Protein 31.50 H Total Protein Albumin Globulin Albumin/Globulin Ratio Hepatitis A IgM Ab Negative Hep Bs Antigen Negative Hep B Core IgM Ab Negative Hepatitis C Antibody Negative HIV 1&2 Ag/Ab, 4th Gen Nonreactive 02/24/19 02/24/19 02/24/19 06:05 06:05 06:05 WBC 6.0 RBC 4.18 L Hgb 13.1 Hct 38.9 MCV 93.1 MCH 31.3 H MCHC 33.6 RDW 13.8 Plt Count 136 MPV 8.7 Neut % (Auto) 61.4 Lymph % (Auto) 22.3 [place] % (Auto) 12.6 H Eos % (Auto) 2.8 Baso % (Auto) 0.9 Neut # (Auto) 3.7 Lymph # (Auto) 1.3 [place] # (Auto) 0.8 Eos # (Auto) 0.2 Baso # (Auto) 0.1 ESR 76 H Sodium 136 Potassium 3.9 Chloride 102 Carbon Dioxide 26 Anion Gap 12 BUN 9 Creatinine 0.9 Est GFR ( Amer) > 60 Est GFR (Non-Af Amer) > 60 Random Glucose 98 Hemoglobin A1c 5.7 Calcium 9.1 Phosphorus 4.8 H Magnesium 1.9 Total Bilirubin 1.5 H AST 52 ALT 39 Alkaline Phosphatase 70 C-Reactive Protein Total Protein 8.0 Albumin 3.7 Globulin 4.2 H Albumin/Globulin Ratio 0.9 L Hepatitis A IgM Ab Hep Bs Antigen Hep B Core IgM Ab Hepatitis C Antibody HIV 1&2 Ag/Ab, 4th Gen Assessment & Plan (1) Abscess Status: Acute (2) Alcohol abuse Status: Acute (3) Cellulitis of buttock Status: Acute Priority: High - Assessment and Plan (Free Text) Assessment: suspect [place]-MRSA will send cultures patient instructed oon need for proper hygiene IV antibiotics reviewed
--- NOTE | 2019-02-24 21:14 | CP.PCM.HP ---
History of Present Illness - History of Present Illness History of Present Illness: Date and time of assessment: 02/24/19, 07:30. CC: Right gluteal fold pain. HPI: 43 y/o Male pt with a PMH of depression presented to the ED with right gluteal fold pain x 4 days. As per the pt, he was recently seen in the ED for left gluteal abscess, and discharged on antibiotics. Shortly after discharge, he returned and had an I&D done to the left gluteal abscess. Currently, the pt has a reddened area to the right gluteal fold, which he reports having intermittent pain. PMH: Depression. PSH: Left gluteal abscess surgery. Social history: ETOH abuse. Allergies: NKDA. Subjective Review of Systems: reviewed and no additional remarkable complaints except occasional buttock pain. Objective Vital Signs Stable Appears: Non-toxic, No Acute Distress. Head Exam: NORMAL INSPECTION, normocephalic. Eye Exam: Normal appearance, PERRLA, EOMI. Respiratory Exam: NORMAL BREATHING PATTERN, breath sounds clear to auscultation. Cardiovascular Exam: +S1, +S2. RRR. GI & Abdominal Exam: Soft, non-tender, non-distended. Neurological Exam: Alert, Awake, Oriented x3. Psychiatric exam: Normal Affect, Normal Mood. Skin Exam: Normal Color, Warm, Dry. Right gluteal fold redness. Assessment/Impression/Plan: -Surgical consult appreciated input. -On Zosyn antibiotics for broad spectrum coverage. -Will consult with infectious disease. -Pain control with Toradol. -Warm compress + Sitz baths. -Stool culture ordered; r/o bleed. -Monitor for worsening infection, fever, leukocytosis. Present on Admission - Present on Admission Any Indicators Present on Admission: No Past Patient History - Past Medical History & Family History Past Medical History?: Yes - Past Social History Smoking Status: Light Smoker < 10 Cigarettes Daily - CARDIAC Hx Cardiac Disorders: No Hx Hypercholesterolemia: No Hx Hypertension: No - PULMONARY Hx Respiratory Disorders: No Hx Asthma: No - NEUROLOGICAL Hx Neurological Disorder: No - HEENT Hx HEENT Problems: No - RENAL Hx Chronic Kidney Disease: No - ENDOCRINE/METABOLIC Hx Endocrine Disorders: No Hx Diabetes Mellitus Type 2: No - HEMATOLOGICAL/ONCOLOGICAL Hx Blood Disorders: No Hx AIDS: No Hx Human Immunodeficiency Virus (HIV): No - INTEGUMENTARY Hx Dermatological Problems: Yes Hx Cellulitis: Yes (was admitted last month for L buttocks cellulitis) - MUSCULOSKELETAL/RHEUMATOLOGICAL Hx Musculoskeletal Disorders: No Hx Falls: No - GASTROINTESTINAL Hx Gastrointestinal Disorders: No - GENITOURINARY/GYNECOLOGICAL Hx Genitourinary Disorders: No - PSYCHIATRIC Hx Psychophysiologic Disorder: Yes Hx Depression: Yes Hx Substance Use: No (denies hx) - SURGICAL HISTORY Hx Surgeries: Yes Other/Comment: states had surgery to L buttocks for abscess last month - ANESTHESIA Hx Anesthesia: Yes Hx Anesthesia Reactions: No Hx Malignant Hyperthermia: No Meds Allergies/Adverse Reactions: Allergies Allergy/AdvReac Type Severity Reaction Status Date / Time No Known Allergies Allergy Verified 01/15/19 17:07 Results - Vital Signs Recent Vital Signs: Last Vital Signs Temp 98.4 F 02/24/19 16:06 Pulse 75 02/24/19 16:06 Resp 18 02/24/19 16:06 BP 112/72 02/24/19 16:06 Pulse Ox 98 02/24/19 16:06 - Labs Result Diagrams: 02/24/19 06:05 02/24/19 06:05 Labs: Laboratory Results - last 24 hr 02/23/19 02/24/19 02/24/19 10:16 06:05 06:05 WBC 6.0 RBC 4.18 L Hgb 13.1 Hct 38.9 MCV 93.1 MCH 31.3 H MCHC 33.6 RDW 13.8 Plt Count 136 MPV 8.7 Neut % (Auto) 61.4 Lymph % (Auto) 22.3 [place] % (Auto) 12.6 H Eos % (Auto) 2.8 Baso % (Auto) 0.9 Neut # (Auto) 3.7 Lymph # (Auto) 1.3 [place] # (Auto) 0.8 Eos # (Auto) 0.2 Baso # (Auto) 0.1 ESR 76 H Sodium 136 Potassium 3.9 Chloride 102 Carbon Dioxide 26 Anion Gap 12 BUN 9 Creatinine 0.9 Est GFR ( Amer) > 60 Est GFR (Non-Af Amer) > 60 Random Glucose 98 Hemoglobin A1c Calcium 9.1 Phosphorus 4.8 H Magnesium 1.9 Total Bilirubin 1.5 H AST 52 ALT 39 Alkaline Phosphatase 70 Total Protein 8.0 Albumin 3.7 Globulin 4.2 H Albumin/Globulin Ratio 0.9 L HIV 1&2 Ag/Ab, 4th Gen Nonreactive 02/24/19 06:05 WBC RBC Hgb Hct MCV MCH MCHC RDW Plt Count MPV Neut % (Auto) Lymph % (Auto) [place] % (Auto) Eos % (Auto) Baso % (Auto) Neut # (Auto) Lymph # (Auto) [place] # (Auto) Eos # (Auto) Baso # (Auto) ESR Sodium Potassium Chloride Carbon Dioxide Anion Gap BUN Creatinine Est GFR ( Amer) Est GFR (Non-Af Amer) Random Glucose Hemoglobin A1c 5.7 Calcium Phosphorus Magnesium Total Bilirubin AST ALT Alkaline Phosphatase Total Protein Albumin Globulin Albumin/Globulin Ratio HIV 1&2 Ag/Ab, 4th Gen Assessment & Plan (1) Abscess Status: Acute (2) Perirectal cellulitis Status: Acute
[2019-02-25] MEDS: Lactated Ringer's 1,000 ML IV SCH (02:16)
[2019-02-25] MEDS: Piperacillin/Tazobact 3.375 GM in Sodium Chloride 0.9% 100 ML IVPB SCH ×4 (04:02→22:06)
[2019-02-25 07:31] LABS: BASO % 0.9 % (0.0-2.0); EOS # 0.1 K/uL (0.0-0.7); EOS % 2.1 % (0.0-4.0); HEMOGLOBIN 12.3 g/dL (12.0-18.0); LYMPH % 17.6 % (20.0-40.0); MEAN CELL VOLUME 92.5 fl (80.0-94.0); MEAN CORPUSCULAR HEMOGLOBIN 31.1 pg (27.0-31.0); MEAN CORPUSCULAR HGB CONC 33.6 g/dL (33.0-37.0); MEAN PLATELET VOLUME 8.2 fl (7.2-11.7); MONO # 0.6 K/uL (0.0-0.8); MONO % 11.4 % (0.0-10.0); NEUT # 3.7 K/uL (1.8-7.0); RBC 3.97 Mil/uL (4.40-5.90); RED CELL DISTRIBUTION WIDTH 14.1 % (11.5-14.5); WHITE BLOOD COUNT 5.5 K/uL (4.8-10.8)
--- NOTE | 2019-02-25 08:08 | CP.PCM.PN ---
<Erika Brooks - Last Filed: 02/25/19 08:38> Subjective - Date & Time of Evaluation Date of Evaluation: 02/25/19 Time of Evaluation: 08:08 - Subjective Subjective: General Surgery Progress Note: Dr. Carter Patient seen and examined at bedside this morning, resting comfortably and in NAD. Patient reports pain to right gluteal fold at this time. He notes that he has continued to use warm compresses and sitz bath as instructed. Denies nausea/vomiting/fever/chills/abdominal pain/diarrhea/constipation. Objective - Vital Signs/Intake and Output Vital Signs (last 24 hours): Temp Pulse Resp BP Pulse Ox 98.2 F 66 18 114/76 99 02/24/19 23:21 02/24/19 23:21 02/24/19 23:21 02/24/19 23:21 02/24/19 23:21 - Medications Medications: Current Medications Acetaminophen (Tylenol 325mg Tab) 650 mg PO Q6 PRN PRN Reason: Pain, Mild (1-3) Lactated Ringer's (Lactated Ringer's) 1,000 mls @ 125 mls/hr IV .Q8H ANDRÉS Last Admin: 02/25/19 02:16 Dose: Not Given Vancomycin HCl 1 gm/ Sodium (Chloride) 250 mls @ 166.667 mls/hr IVPB Q12H ANDRÉS; Protocol Last Admin: 02/24/19 20:32 Dose: 166.667 mls/hr Piperacillin Sod/Tazobactam (Sod 3.375 gm/ Sodium Chloride) 100 mls @ 100 mls/hr IVPB Q6 ANDRÉS; Protocol Last Admin: 02/25/19 04:02 Dose: 100 mls/hr Ketorolac Tromethamine (Toradol) 30 mg IVP Q6 PRN PRN Reason: Pain, severe (8-10) Last Admin: 02/25/19 07:51 Dose: 30 mg - Labs Labs: 02/25/19 07:20 02/24/19 06:05 PT 12.8 Seconds (9.8-13.1) 02/23/19 08:30 INR 1.1 02/23/19 08:30 APTT 37.0 Seconds (25.6-37.1) 02/23/19 08:30 - Constitutional Appears: Non-toxic, No Acute Distress - Head Exam Head Exam: ATRAUMATIC, NORMOCEPHALIC - Respiratory Exam Respiratory Exam: NORMAL BREATHING PATTERN - GI/Abdominal Exam GI & Abdominal Exam: Soft. absent: Tenderness - Rectal Exam Additional comments: Left side: wound from previous I&D Right side: 3x2 cm area of erythema, with induration and mild fluctuance appreciated - Extremities Exam Extremities Exam: Normal Capillary Refill. absent: Calf Tenderness - Back Exam Back Exam: absent: CVA tenderness (L), CVA tenderness (R) - Neurological Exam Neurological Exam: Alert, Awake, Oriented x3 - Psychiatric Exam Psychiatric exam: Normal Affect, Normal Mood - Skin Skin Exam: Intact Assessment and Plan - Assessment and Plan (Free Text) Assessment: 43 year old male patient with right perianal abscess Plan: - Regular diet - Continue with broad spectrum IV abx - f/u labs; absent leukocytosis, serology negative/non-reactive - CT pelvis report; Inferior medial right buttocks phlegmon measuring 4.7 x 1.7 cm rather than abscess - NPO order placed for possible procedure - C/w pain control - Warm compresses, sitz bath - ID consult, reccs appreciated, f/u cultures - Recommend GI consult for rectal bleeding - Further reccs per Dr. Carter <Silvio Carter - Last Filed: 03/01/19 17:24> Objective - Vital Signs/Intake and Output Vital Signs (last 24 hours): Temp Pulse Resp BP Pulse Ox 98.3 F 80 20 109/66 98 03/01/19 08:45 03/01/19 08:45 03/01/19 08:45 03/01/19 08:45 03/01/19 08:45 - Labs Labs: 02/27/19 06:00 02/27/19 06:00 PT 12.8 Seconds (9.8-13.1) 02/23/19 08:30 INR 1.1 02/23/19 08:30 APTT 37.0 Seconds (25.6-37.1) 02/23/19 08:30 Assessment and Plan - Assessment and Plan (Free Text) Plan: All medical record entries made by the resident were at my direction. I have reviewed the chart and agree that the record accurately reflects my personal performance of the history, physical exam, and medical decision making.
[2019-02-25] MEDS ORDERED: Iohexol 240 (50 ml) PO ONE (09:03)
[2019-02-25] MEDS ORDERED: Iohexol 300 100 ML IJ ONE (14:07)
[2019-02-25] MEDS ORDERED: Sodium Chloride 0.9% 50 ML IV ONE (14:07)
--- NOTE | 2019-02-25 15:19 | CT ---
Date of service: 02/25/2019 PROCEDURE: CT Abdomen and Pelvis with contrast HISTORY: staged CT for r/o abscess changes COMPARISON: 02/23/2019 CT pelvis only TECHNIQUE: Contrast dose: 95 cc Omnipaque 300 Radiation dose: Total exam DLP = 459.4 mGy-cm. This CT exam was performed using one or more of the following dose reduction techniques: Automated exposure control, adjustment of the mA and/or kV according to patient size, and/or use of iterative reconstruction technique. FINDINGS: LOWER THORAX: Mild bilateral gynecomastia. No pulmonary infiltrate or pleural effusion. LIVER: Unremarkable. No gross lesion or ductal dilatation. GALLBLADDER AND BILE DUCTS: Unremarkable. PANCREAS: Unremarkable. No gross lesion or ductal dilatation. SPLEEN: Unremarkable. ADRENALS: Unremarkable. No mass. KIDNEYS AND URETERS: 5 mm nonobstructing mid left renal calculus. 3 mm nonobstructing mid right renal calculus. No renal mass or hydronephrosis.. VASCULATURE: Unremarkable. No aortic aneurysm. There is atherosclerotic calcification of the abdominal aorta. BOWEL: Unremarkable. No obstruction. No gross mural thickening. APPENDIX: Normal appendix. PERITONEUM: Unremarkable. No free fluid. No free air. LYMPH NODES: Unremarkable. No enlarged lymph nodes. BLADDER: Unremarkable. REPRODUCTIVE: Normal prostate BONES: No acute fracture. OTHER FINDINGS: None. IMPRESSION: Bilateral small nonobstructing renal calculi. Mild bilateral gynecomastia. Otherwise unremarkable examination.
[2019-02-26] MEDS: Lactated Ringer's 1,000 ML IV SCH ×3 (01:00→17:04)
[2019-02-26 03:08] LABS: ANCA SCREEN NEGATIVE (NEGATIVE)
[2019-02-26] MEDS: Piperacillin/Tazobact 3.375 GM in Sodium Chloride 0.9% 100 ML IVPB SCH ×4 (03:12→22:58)
[2019-02-26 06:23] LABS: BASO # 0.1 K/uL (0.0-0.2); EOS # 0.2 K/uL (0.0-0.7); EOS % 2.7 % (0.0-4.0); HEMOGLOBIN 12.6 g/dL (12.0-18.0); LYMPH # 1.6 K/uL (1.0-4.3); LYMPH % 23.7 % (20.0-40.0); MEAN CELL VOLUME 92.7 fl (80.0-94.0); MEAN CORPUSCULAR HEMOGLOBIN 30.8 pg (27.0-31.0); MEAN CORPUSCULAR HGB CONC 33.3 g/dL (33.0-37.0); MEAN PLATELET VOLUME 8.5 fl (7.2-11.7); MONO % 14.6 % (0.0-10.0); NRBC % 0.1 % (0.0-0.0); RBC 4.09 Mil/uL (4.40-5.90); RED CELL DISTRIBUTION WIDTH 14.1 % (11.5-14.5)
[2019-02-26 06:40] LABS: BLOOD UREA NITROGEN 12 mg/dl (9-20); GFR NON-AFRICAN AMERICAN > 60
--- NOTE | 2019-02-26 12:22 | CP.PCM.PN ---
Subjective - Date & Time of Evaluation Date of Evaluation: 02/26/19 Time of Evaluation: 06:00 - Subjective Subjective: serology / cultures neg less pain and swelling Objective - Vital Signs/Intake and Output Vital Signs (last 24 hours): Temp Pulse Resp BP Pulse Ox 98.7 F 73 18 135/89 99 02/26/19 08:41 02/26/19 08:41 02/26/19 08:41 02/26/19 08:41 02/26/19 08:41 - Medications Medications: Current Medications Acetaminophen (Tylenol 325mg Tab) 650 mg PO Q6 PRN PRN Reason: Pain, Mild (1-3) Lactated Ringer's (Lactated Ringer's) 1,000 mls @ 125 mls/hr IV .Q8H ANDRÉS Last Admin: 02/26/19 08:48 Dose: Not Given Vancomycin HCl 1 gm/ Sodium (Chloride) 250 mls @ 166.667 mls/hr IVPB Q12H ANDRÉS; Protocol Last Admin: 02/26/19 09:52 Dose: 166.667 mls/hr Piperacillin Sod/Tazobactam (Sod 3.375 gm/ Sodium Chloride) 100 mls @ 100 mls/hr IVPB Q6 ANDRÉS; Protocol Last Admin: 02/26/19 11:41 Dose: 100 mls/hr Ketorolac Tromethamine (Toradol) 30 mg IVP Q6 PRN PRN Reason: Pain, severe (8-10) Last Admin: 02/26/19 10:12 Dose: 30 mg - Labs Labs: 02/26/19 05:40 02/26/19 05:40 PT 12.8 Seconds (9.8-13.1) 02/23/19 08:30 INR 1.1 02/23/19 08:30 APTT 37.0 Seconds (25.6-37.1) 02/23/19 08:30 - Constitutional Appears: Non-toxic, Chronically Ill - Head Exam Head Exam: NORMOCEPHALIC - Eye Exam Eye Exam: absent: Scleral icterus - ENT Exam ENT Exam: Mucous Membranes Dry - Neck Exam Neck Exam: absent: Lymphadenopathy - Respiratory Exam Respiratory Exam: Decreased Breath Sounds - Cardiovascular Exam Cardiovascular Exam: REGULAR RHYTHM - GI/Abdominal Exam GI & Abdominal Exam: Distended - Rectal Exam Rectal Exam: Deferred - Exam Exam: NORMAL INSPECTION - Extremities Exam Extremities Exam: absent: Pedal Edema - Back Exam Back Exam: absent: CVA tenderness (L), CVA tenderness (R) Assessment and Plan (1) Abscess Status: Acute (2) Alcohol abuse Status: Acute (3) Cellulitis of buttock Status: Acute - Assessment and Plan (Free Text) Assessment: cont wound care and antibiotics wound cultures ordered but not resulted
--- NOTE | 2019-02-26 14:42 | CP.PCM.PN ---
Subjective - Date & Time of Evaluation Date of Evaluation: 02/25/19 Time of Evaluation: 10:30 - Subjective Subjective: patient seen and examined at bedside. Interim events noted states pain of rectum when laying/sitting down, only can lay on side denies cp/sob/fever/chills. available diagnostic data reviewed Review of Systems All systems: reviewed and no additional remarkable complaints except mentioned above Objective Vital Signs Stable - Constitutional Appears: Non-toxic, No Acute Distress Head Exam: NORMAL INSPECTION Eye Exam: Normal appearance Respiratory Exam: NORMAL BREATHING PATTERN Cardiovascular Exam: +S1, +S2 GI & Abdominal Exam: Soft Neurological Exam: Alert, Awake Psychiatric exam: Normal Affect, Normal Mood Skin Exam: Normal Color, Warm Assessment and Plan monitor vitals monitor labs Cont meds Cont tx consultants appreciated input pending repeat CT rest of plan as ordered
--- NOTE | 2019-02-26 16:14 | CP.PCM.PN ---
Subjective - Date & Time of Evaluation Date of Evaluation: 02/26/19 Time of Evaluation: 11:12 - Subjective Subjective: patient is stable Still with a lot of drainage Reyez sno fever. Objective - Vital Signs/Intake and Output Vital Signs (last 24 hours): Temp Pulse Resp BP Pulse Ox 101 F H 73 18 135/89 99 02/26/19 16:00 02/26/19 08:41 02/26/19 08:41 02/26/19 08:41 02/26/19 08:41 - Medications Medications: Current Medications Acetaminophen (Tylenol 325mg Tab) 650 mg PO Q6 PRN PRN Reason: Pain, Mild (1-3) Acetaminophen (Tylenol 325mg Tab) 650 mg PO Q6 PRN PRN Reason: Fever >100.4 F Last Admin: 02/26/19 16:00 Dose: 650 mg Lactated Ringer's (Lactated Ringer's) 1,000 mls @ 125 mls/hr IV .Q8H ANDRÉS Last Admin: 02/26/19 08:48 Dose: Not Given Vancomycin HCl 1 gm/ Sodium (Chloride) 250 mls @ 166.667 mls/hr IVPB Q12H ANDRÉS; Protocol Last Admin: 02/26/19 09:52 Dose: 166.667 mls/hr Piperacillin Sod/Tazobactam (Sod 3.375 gm/ Sodium Chloride) 100 mls @ 100 mls/hr IVPB Q6 ANDRÉS; Protocol Last Admin: 02/26/19 16:09 Dose: 100 mls/hr Ketorolac Tromethamine (Toradol) 30 mg IVP Q6 PRN PRN Reason: Pain, severe (8-10) Last Admin: 02/26/19 10:12 Dose: 30 mg - Labs Labs: 02/26/19 05:40 02/26/19 05:40 PT 12.8 Seconds (9.8-13.1) 02/23/19 08:30 INR 1.1 02/23/19 08:30 APTT 37.0 Seconds (25.6-37.1) 02/23/19 08:30 - Head Exam Head Exam: NORMAL INSPECTION - Eye Exam Eye Exam: Normal appearance - ENT Exam ENT Exam: Mucous Membranes Moist - Respiratory Exam Respiratory Exam: Clear to Ausculation Bilateral - Cardiovascular Exam Cardiovascular Exam: REGULAR RHYTHM - GI/Abdominal Exam GI & Abdominal Exam: Normal Bowel Sounds Assessment and Plan (1) Perianal abscess Status: Acute - Assessment and Plan (Free Text) Plan: Cont meds Con ttx labs reviewed medically stable for I and D
[2019-02-26] MEDS ORDERED: Propofol 10 mg/ml Inj (20 ML) ONE ×2 (17:09→17:12)
[2019-02-26] MEDS ORDERED: Methylene Blue 10 mg/mL(10ml) IV ONE (17:14)
[2019-02-26] MEDS ORDERED: Midazolam 2 MG/2 ML VIAL ONE (18:43)
[2019-02-26] MEDS ORDERED: Bupivacaine 0.5% Inj(30mL) ONE (18:50)
[2019-02-26] MEDS ORDERED: Lactated Ringer's 1,000 ML IV ONE (18:50)
[2019-02-26] MEDS ORDERED: Lidocaine 1% Inj (20ml) ONE (18:50)
[2019-02-26] MEDS ORDERED: Lidocaine 1% w Epi 1:100,000 Inj ONE (19:01)
--- NOTE | 2019-02-26 19:26 | PCM.SURG1 ---
Surgeon's Initial Post Op Note - Surgeon's Notes Surgeon: MD Jazz Sensor Technician: JOHN SealsY3. JOHN JonesY2 Pre-Operative Diagnosis: Right perianeal abscess Operative Findings: Right perianeal abscess Post-Operative Diagnosis: Right perianeal abscess Operation Performed: Incision and drainage of Right perianeal abscess Specimen/Specimens Removed: culture Estimated Blood Loss: EBL {In ML}: 20 Date of Surgery/Procedure: 02/26/19 Time of Surgery/Procedure: 19:26
[2019-02-26] MEDS: HYDROmorphone 0.5 mg/0.5 ml ISec IVP PRN ×2 (20:01→20:11)
[2019-02-27] MEDS: Lactated Ringer's 1,000 ML IV SCH ×4 (00:30→16:06)
[2019-02-27] MEDS: Piperacillin/Tazobact 3.375 GM in Sodium Chloride 0.9% 100 ML IVPB SCH ×4 (03:15→21:49)
--- NOTE | 2019-02-27 03:31 | CON ---
DATE: 02/26/2019 REFERRING PHYSICIAN: Camacho North MD REASON FOR CONSULTATION: Rectal bleeding. HISTORY OF PRESENT ILLNESS: This is a very pleasant 43-year-old male with a history of left gluteal abscess which was I and D'ed. GI is called for an episode of blood in stool. The patient has bowel movements normally. There is no fevers and chills. No abdominal discomfort. No weight loss. Currently lying in bed comfortably, in no apparent distress. PAST MEDICAL HISTORY: As above. PAST SURGICAL HISTORY: As above. MEDICATIONS: Reviewed. REVIEW OF SYSTEMS: All other systems have been reviewed and negative apart from HPI. PHYSICAL EXAMINATION: VITAL SIGNS: Here in the hospital, grossly unremarkable. GENERAL: A pleasant middle-age male, lying in bed comfortably, in no apparent distress. HEENT: Head; normocephalic and atraumatic. Eyes; pupils are equally reactive to light bilaterally. No conjunctival pallor or icterus. NECK: Supple. Normal range of motion. No lymphadenopathy appreciated. LUNGS: Coarse breath sounds bilaterally. HEART: S1 and S2. Regular rate and rhythm. No murmurs appreciated. ABDOMEN: Soft and nontender. Bowel sounds are present. No rebound. No guarding. RECTAL: Deferred. EXTREMITIES: Pulses present bilaterally. SKIN: Warm, dry and intact. NEUROLOGIC: Alert and oriented x3. LABORATORY DATA: All labs and radiology have been reviewed. CAT scan is grossly unremarkable. WBC is 7, hemoglobin of 12.6 and stable, hematocrit 37.9, stable as well. ASSESSMENT AND PLAN: This is a 43-year-old male with left gluteal abscess and rectal bleeding. This is more likely constipation related from medications. We would plan for outpatient workup once the current infection is controlled. Thank you for the consult. Galdino Montes MD/ PhD cc: Camacho North MD
--- NOTE | 2019-02-27 03:35 | OP ---
PROCEDURE DATE: 02/26/2019 PREOPERATIVE DIAGNOSIS: Right perianal abscess. POSTOPERATIVE DIAGNOSIS: Right perianal abscess. SURGEON: Silvio Chinchilla MD ASSISTANTS: Maximiliano Jones DO, PGY-2 and Fredy Seals DO, PGY-3 PROCEDURE PERFORMED: Incision and drainage of right perianal abscess. ANESTHESIOLOGIST: Ann Mora MD ANESTHESIA: LMA and sedation. ESTIMATED BLOOD LOSS: 20 mL. DESCRIPTION OF PROCEDURE: The patient was placed in lithotomy position. Area was prepped and draped in the usual sterile fashion with betadine. Local anesthesia was placed along the length of planned incision with 10ml of lidocaine. Incision was made approximately 4 cm in length. Small amount of purulent fluid was able to be drained with some blood. Christi was used to dissect down to the subcutaneous area. Culture was taken. Area was irrigated with normal saline. Methylene blue was placed in the rectum. The incision and drainage site was examined for any methylene blue extravasation which was not evident. The area was further irrigated with normal saline, and the area was packed with 1/2-inch iodoform packing. At the end of the case, there was no bleeding. The 4x4 gauze, ABDs, and tape were used for dressing. The patient was extubated and taken to the postoperative care unit without any complications. Fredy Seals DO Silvio Forrester MD [email or web address]
--- NOTE | 2019-02-27 04:13 | CP.PCM.PN ---
<Fredy Seals - Last Filed: 02/27/19 04:11> Subjective - Date & Time of Evaluation Date of Evaluation: 02/27/19 Time of Evaluation: 04:11 - Subjective Subjective: SURGERY NOTE FOR DR. PRABHAKAR 43M seen and examined at bedside. Patient doing well states pain is improved/resolved. Patient has gone to the bathroom for BMs. Objective - Vital Signs/Intake and Output Vital Signs (last 24 hours): Temp Pulse Resp BP Pulse Ox 98.5 F 73 20 106/67 98 02/27/19 03:30 02/27/19 03:30 02/27/19 03:30 02/27/19 03:30 02/27/19 03:30 Intake and Output: 02/26/19 02/27/19 18:59 06:59 Intake Total 400 150 Balance 400 150 - Medications Medications: Current Medications Acetaminophen (Tylenol 325mg Tab) 650 mg PO Q6 PRN PRN Reason: Pain, Mild (1-3) Acetaminophen (Tylenol 325mg Tab) 650 mg PO Q6 PRN PRN Reason: Fever >100.4 F Last Admin: 02/26/19 16:00 Dose: 650 mg Lactated Ringer's (Lactated Ringer's) 1,000 mls @ 125 mls/hr IV .Q8H ANDRÉS Last Admin: 02/27/19 03:16 Dose: 125 mls/hr Vancomycin HCl 1 gm/ Sodium (Chloride) 250 mls @ 166.667 mls/hr IVPB Q12H ANDRÉS; Protocol Last Admin: 02/26/19 20:47 Dose: 166.667 mls/hr Piperacillin Sod/Tazobactam (Sod 3.375 gm/ Sodium Chloride) 100 mls @ 100 mls/hr IVPB Q6 ANDRÉS; Protocol Last Admin: 02/27/19 03:15 Dose: 100 mls/hr Ketorolac Tromethamine (Toradol) 30 mg IVP Q6 PRN PRN Reason: Pain, severe (8-10) Last Admin: 02/26/19 10:12 Dose: 30 mg Morphine Sulfate (Morphine) 2 mg IVP Q4 PRN PRN Reason: Pain, moderate (4-7) Last Admin: 02/27/19 01:56 Dose: 2 mg - Labs Labs: 02/26/19 05:40 02/26/19 05:40 PT 12.8 Seconds (9.8-13.1) 02/23/19 08:30 INR 1.1 02/23/19 08:30 APTT 37.0 Seconds (25.6-37.1) 02/23/19 08:30 - Constitutional Appears: Non-toxic, No Acute Distress - Respiratory Exam Respiratory Exam: Clear to Ausculation Bilateral, NORMAL BREATHING PATTERN - Cardiovascular Exam Cardiovascular Exam: REGULAR RHYTHM, +S1, +S2 - GI/Abdominal Exam GI & Abdominal Exam: Soft. absent: Distended, Firm, Guarding, Rigid, Tenderness, Rebound - Rectal Exam Additional comments: right dimas abscess dressing draining serosang purulent - Extremities Exam Extremities Exam: absent: Pedal Edema, Tenderness - Neurological Exam Neurological Exam: Alert, Awake - Skin Skin Exam: Dry, Intact, Normal Color, Warm Assessment and Plan - Assessment and Plan (Free Text) Assessment: 43M s/p right perianal abscess incision and drainage POD#1 Plan: - Packing in place - Continue antibiotics - f/u GI recs Further recs discuss with Dr. Daya Seals, PGY3 <Silvio Prabhakar N - Last Filed: 03/01/19 17:12> Objective - Vital Signs/Intake and Output Vital Signs (last 24 hours): Temp Pulse Resp BP Pulse Ox 98.3 F 80 20 109/66 98 03/01/19 08:45 03/01/19 08:45 03/01/19 08:45 03/01/19 08:45 03/01/19 08:45 - Labs Labs: 02/27/19 06:00 02/27/19 06:00 PT 12.8 Seconds (9.8-13.1) 02/23/19 08:30 INR 1.1 02/23/19 08:30 APTT 37.0 Seconds (25.6-37.1) 02/23/19 08:30 Assessment and Plan - Assessment and Plan (Free Text) Plan: All medical record entries made by the resident were at my direction. I have reviewed the chart and agree that the record accurately reflects my personal performance of the history, physical exam, and medical decision making.
[2019-02-27 08:03] LABS: BASO # 0.1 K/uL (0.0-0.2); BASO % 0.8 % (0.0-2.0); EOS # 0.1 K/uL (0.0-0.7); EOS % 1.8 % (0.0-4.0); HEMOGLOBIN 12.3 g/dL (12.0-18.0); LYMPH # 1.5 K/uL (1.0-4.3); LYMPH % 19.4 % (20.0-40.0); MEAN CELL VOLUME 91.8 fl (80.0-94.0); MEAN CORPUSCULAR HEMOGLOBIN 30.9 pg (27.0-31.0); MEAN CORPUSCULAR HGB CONC 33.7 g/dL (33.0-37.0); MEAN PLATELET VOLUME 8.4 fl (7.2-11.7); MONO # 0.9 K/uL (0.0-0.8); MONO % 11.8 % (0.0-10.0); NEUT # 5.1 K/uL (1.8-7.0); NEUT % 66.2 % (50.0-75.0); NRBC % 0.1 % (0.0-0.0); RBC 3.96 Mil/uL (4.40-5.90); RED CELL DISTRIBUTION WIDTH 14.2 % (11.5-14.5); WHITE BLOOD COUNT 7.7 K/uL (4.8-10.8)
[2019-02-27 08:40] LABS: ALBUMIN 3.7 g/dL (3.5-5.0); ALT/SGPT 51 U/L (21-72); AST/SGOT 57 U/L (17-59); BLOOD UREA NITROGEN 9 mg/dl (9-20); GFR NON-AFRICAN AMERICAN > 60
--- NOTE | 2019-02-27 12:35 | CP.PCM.PN ---
Subjective - Date & Time of Evaluation Date of Evaluation: 02/27/19 Time of Evaluation: 09:00 - Subjective Subjective: patient seen and examined at bedside. Interim events noted I&D completed yesterday, feels well, pain controlled, had bowel movement denies cp/sob/fever/chills. available diagnostic data reviewed Review of Systems All systems: reviewed and no additional remarkable complaints except mentioned above Objective Vital Signs Stable - Constitutional Appears: Non-toxic, No Acute Distress Head Exam: NORMAL INSPECTION Eye Exam: Normal appearance Respiratory Exam: NORMAL BREATHING PATTERN Cardiovascular Exam: +S1, +S2 GI & Abdominal Exam: Soft Neurological Exam: Alert, Awake Psychiatric exam: Normal Affect, Normal Mood Skin Exam: Normal Color, Warm Assessment and Plan monitor vitals monitor labs Cont meds Cont tx consultants appreciated input wound culture pending rest of plan as ordered Objective - Vital Signs/Intake and Output Vital Signs (last 24 hours): Temp Pulse Resp BP Pulse Ox 97.9 F 78 18 124/80 99 02/27/19 12:24 02/27/19 12:24 02/27/19 12:24 02/27/19 12:24 02/27/19 12:24 Intake and Output: 02/27/19 02/27/19 06:59 18:59 Intake Total 150 Balance 150 - Medications Medications: Current Medications Acetaminophen (Tylenol 325mg Tab) 650 mg PO Q6 PRN PRN Reason: Pain, Mild (1-3) Acetaminophen (Tylenol 325mg Tab) 650 mg PO Q6 PRN PRN Reason: Fever >100.4 F Last Admin: 02/26/19 16:00 Dose: 650 mg Lactated Ringer's (Lactated Ringer's) 1,000 mls @ 125 mls/hr IV .Q8H ANDRÉS Last Admin: 02/27/19 09:56 Dose: Not Given Vancomycin HCl 1 gm/ Sodium (Chloride) 250 mls @ 166.667 mls/hr IVPB Q12H ANDRÉS; Protocol Last Admin: 02/27/19 07:52 Dose: 166.667 mls/hr Piperacillin Sod/Tazobactam (Sod 3.375 gm/ Sodium Chloride) 100 mls @ 100 mls/hr IVPB Q6 ANDRÉS; Protocol Last Admin: 02/27/19 09:56 Dose: 100 mls/hr Ketorolac Tromethamine (Toradol) 30 mg IVP Q6 PRN PRN Reason: Pain, severe (8-10) Last Admin: 02/27/19 05:03 Dose: 30 mg Morphine Sulfate (Morphine) 2 mg IVP Q4 PRN PRN Reason: Pain, moderate (4-7) Last Admin: 02/27/19 01:56 Dose: 2 mg - Labs Labs: 02/27/19 06:00 02/27/19 06:00 PT 12.8 Seconds (9.8-13.1) 02/23/19 08:30 INR 1.1 02/23/19 08:30 APTT 37.0 Seconds (25.6-37.1) 02/23/19 08:30 Assessment and Plan (1) Perianal abscess Status: Acute
[2019-02-28] MEDS: Lactated Ringer's 1,000 ML IV SCH ×4 (01:04→16:00)
[2019-02-28] MEDS: Piperacillin/Tazobact 3.375 GM in Sodium Chloride 0.9% 100 ML IVPB SCH ×4 (03:15→22:55)
--- NOTE | 2019-02-28 12:59 | CP.PCM.PN ---
<Maximiliano Jones - Last Filed: 02/28/19 13:19> Subjective - Date & Time of Evaluation Date of Evaluation: 02/28/19 Time of Evaluation: 10:30 - Subjective Subjective: SURGERY NOTE FOR DR. PRABHAKAR 43M seen and examined at bedside. Patient doing well states pain is improved/resolved. Patient has gone to the bathroom for BMs. Objective - Vital Signs/Intake and Output Vital Signs (last 24 hours): Temp Pulse Resp BP Pulse Ox 98.6 F 81 20 114/72 97 02/27/19 23:36 02/27/19 23:36 02/27/19 23:36 02/27/19 23:36 02/27/19 23:36 - Medications Medications: Current Medications Acetaminophen (Tylenol 325mg Tab) 650 mg PO Q6 PRN PRN Reason: Pain, Mild (1-3) Acetaminophen (Tylenol 325mg Tab) 650 mg PO Q6 PRN PRN Reason: Fever >100.4 F Last Admin: 02/26/19 16:00 Dose: 650 mg Lactated Ringer's (Lactated Ringer's) 1,000 mls @ 125 mls/hr IV .Q8H ANDRÉS Last Admin: 02/28/19 09:21 Dose: Not Given Vancomycin HCl 1 gm/ Sodium (Chloride) 250 mls @ 166.667 mls/hr IVPB Q12H ANDRÉS; Protocol Last Admin: 02/28/19 07:25 Dose: 166.667 mls/hr Piperacillin Sod/Tazobactam (Sod 3.375 gm/ Sodium Chloride) 100 mls @ 100 mls/hr IVPB Q6 ANDRÉS; Protocol Last Admin: 02/28/19 09:21 Dose: 100 mls/hr Ketorolac Tromethamine (Toradol) 30 mg IVP Q6 PRN PRN Reason: Pain, severe (8-10) Last Admin: 02/27/19 15:57 Dose: 30 mg Morphine Sulfate (Morphine) 2 mg IVP Q4 PRN PRN Reason: Pain, moderate (4-7) Last Admin: 02/28/19 09:26 Dose: 2 mg - Labs Labs: 02/27/19 06:00 02/27/19 06:00 PT 12.8 Seconds (9.8-13.1) 02/23/19 08:30 INR 1.1 02/23/19 08:30 APTT 37.0 Seconds (25.6-37.1) 02/23/19 08:30 - Additional Findings Additional findings: - Constitutional Appears: Non-toxic, No Acute Distress - Respiratory Exam Respiratory Exam: Clear to Ausculation Bilateral, NORMAL BREATHING PATTERN - Cardiovascular Exam Cardiovascular Exam: REGULAR RHYTHM, +S1, +S2 - GI/Abdominal Exam GI & Abdominal Exam: Soft. absent: Distended, Firm, Guarding, Rigid, Tenderness, Rebound - Rectal Exam Additional comments: dressing stained with serosanguinous fluid, packing in place - Extremities Exam Extremities Exam: absent: Pedal Edema, Tenderness - Neurological Exam Neurological Exam: Alert, Awake - Skin Skin Exam: Dry, Intact, Normal Color, Warm Assessment and Plan - Assessment and Plan (Free Text) Assessment: 43M s/p right perianal abscess incision and drainage POD#2 Plan: - Continue antibiotics - remove packing Thursday 03/01 - f/u GI recs - No further surgical intervention needed Further recs discuss with Dr. Prabhakar <Silvio Prabhakar - Last Filed: 03/01/19 17:10> Objective - Vital Signs/Intake and Output Vital Signs (last 24 hours): Temp Pulse Resp BP Pulse Ox 98.3 F 80 20 109/66 98 03/01/19 08:45 03/01/19 08:45 03/01/19 08:45 03/01/19 08:45 03/01/19 08:45 - Labs Labs: 02/27/19 06:00 02/27/19 06:00 PT 12.8 Seconds (9.8-13.1) 02/23/19 08:30 INR 1.1 02/23/19 08:30 APTT 37.0 Seconds (25.6-37.1) 02/23/19 08:30 Assessment and Plan - Assessment and Plan (Free Text) Assessment: All medical record entries made by the resident were at my direction. I have reviewed the chart and agree that the record accurately reflects my personal performance of the history, physical exam, and medical decision making.
--- NOTE | 2019-02-28 15:36 | CP.PCM.PN ---
Subjective - Date & Time of Evaluation Date of Evaluation: 02/28/19 Time of Evaluation: 08:00 - Subjective Subjective: alert awake afebrile in NAD Objective - Vital Signs/Intake and Output Vital Signs (last 24 hours): Temp Pulse Resp BP Pulse Ox 98.6 F 81 20 114/72 97 02/27/19 23:36 02/27/19 23:36 02/27/19 23:36 02/27/19 23:36 02/27/19 23:36 - Medications Medications: Current Medications Acetaminophen (Tylenol 325mg Tab) 650 mg PO Q6 PRN PRN Reason: Pain, Mild (1-3) Acetaminophen (Tylenol 325mg Tab) 650 mg PO Q6 PRN PRN Reason: Fever >100.4 F Last Admin: 02/26/19 16:00 Dose: 650 mg Lactated Ringer's (Lactated Ringer's) 1,000 mls @ 125 mls/hr IV .Q8H ANDRÉS Last Admin: 02/28/19 09:21 Dose: Not Given Vancomycin HCl 1 gm/ Sodium (Chloride) 250 mls @ 166.667 mls/hr IVPB Q12H ANDRÉS; Protocol Last Admin: 02/28/19 07:25 Dose: 166.667 mls/hr Piperacillin Sod/Tazobactam (Sod 3.375 gm/ Sodium Chloride) 100 mls @ 100 mls/hr IVPB Q6 ANDRÉS; Protocol Last Admin: 02/28/19 09:21 Dose: 100 mls/hr Ketorolac Tromethamine (Toradol) 30 mg IVP Q6 PRN PRN Reason: Pain, severe (8-10) Last Admin: 02/27/19 15:57 Dose: 30 mg Morphine Sulfate (Morphine) 2 mg IVP Q4 PRN PRN Reason: Pain, moderate (4-7) Last Admin: 02/28/19 09:26 Dose: 2 mg - Labs Labs: 02/27/19 06:00 02/27/19 06:00 PT 12.8 Seconds (9.8-13.1) 02/23/19 08:30 INR 1.1 02/23/19 08:30 APTT 37.0 Seconds (25.6-37.1) 02/23/19 08:30 - Constitutional Appears: Non-toxic, Chronically Ill - Head Exam Head Exam: NORMOCEPHALIC - Eye Exam Eye Exam: absent: Scleral icterus - ENT Exam ENT Exam: Mucous Membranes Dry - Neck Exam Neck Exam: absent: Lymphadenopathy - Respiratory Exam Respiratory Exam: Decreased Breath Sounds - Cardiovascular Exam Cardiovascular Exam: REGULAR RHYTHM - GI/Abdominal Exam GI & Abdominal Exam: Distended - Rectal Exam Rectal Exam: Deferred - Exam Exam: NORMAL INSPECTION - Extremities Exam Extremities Exam: absent: Pedal Edema - Back Exam Back Exam: absent: CVA tenderness (L), CVA tenderness (R) - Neurological Exam Neurological Exam: Alert, Awake - Psychiatric Exam Psychiatric exam: Normal Mood - Skin Skin Exam: Dry Assessment and Plan (1) Abscess Status: Acute (2) Alcohol abuse Status: Acute (3) Cellulitis of buttock Status: Acute - Assessment and Plan (Free Text) Assessment: improving no new cultures for packing removal possible d/c on PO antibiotics
[2019-02-28 23:50] VITALS: RESP 20
[2019-03-01] MEDS: Lactated Ringer's 1,000 ML IV SCH ×3 (01:00→09:00)
[2019-03-01] MEDS: Piperacillin/Tazobact 3.375 GM in Sodium Chloride 0.9% 100 ML IVPB SCH ×2 (04:27→10:52)
[2019-03-01 08:45] VITALS: BP 109/66; PULSE 80; TEMP 98.3; O2SAT 98
[2019-03-01 09:15] LABS: RUBELLA AB (IGG) 2.74 index
--- NOTE | 2019-03-01 09:25 | CP.PCM.PN ---
<López Stanley - Last Filed: 03/01/19 09:19> Subjective - Date & Time of Evaluation Date of Evaluation: 03/01/19 Time of Evaluation: 09:19 - Subjective Subjective: Surgery Progress note- Dr. Chinchilla Patient seen and examined. Packing removed at bedside. Tolerating regular diet. Passing flatus having BM. Has noticed some serosang drainage from the incision site. Denies fevers, chills, chest pain, shortness of breath. Objective - Vital Signs/Intake and Output Vital Signs (last 24 hours): Temp Pulse Resp BP Pulse Ox 98.3 F 80 20 109/66 98 03/01/19 08:45 03/01/19 08:45 03/01/19 08:45 03/01/19 08:45 03/01/19 08:45 - Medications Medications: Current Medications Acetaminophen (Tylenol 325mg Tab) 650 mg PO Q6 PRN PRN Reason: Pain, Mild (1-3) Acetaminophen (Tylenol 325mg Tab) 650 mg PO Q6 PRN PRN Reason: Fever >100.4 F Last Admin: 02/26/19 16:00 Dose: 650 mg Lactated Ringer's (Lactated Ringer's) 1,000 mls @ 125 mls/hr IV .Q8H ANDRÉS Last Admin: 03/01/19 04:21 Dose: 125 mls/hr Vancomycin HCl 1 gm/ Sodium (Chloride) 250 mls @ 166.667 mls/hr IVPB Q12H ANDRÉS; Protocol Last Admin: 02/28/19 21:06 Dose: 166.667 mls/hr Piperacillin Sod/Tazobactam (Sod 3.375 gm/ Sodium Chloride) 100 mls @ 100 mls/hr IVPB Q6 ANDRÉS; Protocol Last Admin: 03/01/19 04:27 Dose: 100 mls/hr Morphine Sulfate (Morphine) 2 mg IVP Q4 PRN PRN Reason: Pain, moderate (4-7) Last Admin: 02/28/19 15:38 Dose: 2 mg - Labs Labs: 02/27/19 06:00 02/27/19 06:00 PT 12.8 Seconds (9.8-13.1) 02/23/19 08:30 INR 1.1 02/23/19 08:30 APTT 37.0 Seconds (25.6-37.1) 02/23/19 08:30 - Constitutional Appears: Non-toxic, No Acute Distress - Head Exam Head Exam: ATRAUMATIC - Eye Exam Eye Exam: EOMI. absent: Scleral icterus - ENT Exam ENT Exam: Mucous Membranes Moist - Respiratory Exam Respiratory Exam: NORMAL BREATHING PATTERN. absent: Accessory Muscle Use, Respiratory Distress - Cardiovascular Exam Cardiovascular Exam: REGULAR RHYTHM. absent: Bradycardia, Tachycardia - GI/Abdominal Exam GI & Abdominal Exam: Soft. absent: Distended, Firm, Guarding, Rigid, Tenderness - Rectal Exam Additional comments: Packing removed at bedside. Re-dressed w/ ABD - Extremities Exam Extremities Exam: absent: Calf Tenderness - Neurological Exam Neurological Exam: Alert, Awake, Oriented x3 - Psychiatric Exam Psychiatric exam: Normal Affect - Skin Skin Exam: Intact, Warm Assessment and Plan - Assessment and Plan (Free Text) Assessment: 43M s/p right perianal abscess incision and drainage POD#3 Plan: - cleared for discharge from surgical standpoint - f/u GI recs - No further surgical intervention needed - Further recs discuss with Dr. Garcia <Silvio Carter - Last Filed: 03/01/19 17:04> Objective - Vital Signs/Intake and Output Vital Signs (last 24 hours): Temp Pulse Resp BP Pulse Ox 98.3 F 80 20 109/66 98 03/01/19 08:45 03/01/19 08:45 03/01/19 08:45 03/01/19 08:45 03/01/19 08:45 - Labs Labs: 02/27/19 06:00 02/27/19 06:00 PT 12.8 Seconds (9.8-13.1) 02/23/19 08:30 INR 1.1 02/23/19 08:30 APTT 37.0 Seconds (25.6-37.1) 02/23/19 08:30 Assessment and Plan - Assessment and Plan (Free Text) Plan: All medical record entries made by the resident were at my direction. I have reviewed the chart and agree that the record accurately reflects my personal performance of the history, physical exam, and medical decision making.
--- NOTE | 2019-03-01 12:27 | CP.PCM.PN ---
Subjective - Date & Time of Evaluation Date of Evaluation: 03/01/19 Time of Evaluation: 09:00 - Subjective Subjective: improving awake alert nad Objective - Vital Signs/Intake and Output Vital Signs (last 24 hours): Temp Pulse Resp BP Pulse Ox 98.3 F 80 20 109/66 98 03/01/19 08:45 03/01/19 08:45 03/01/19 08:45 03/01/19 08:45 03/01/19 08:45 - Medications Medications: Current Medications Acetaminophen (Tylenol 325mg Tab) 650 mg PO Q6 PRN PRN Reason: Pain, Mild (1-3) Acetaminophen (Tylenol 325mg Tab) 650 mg PO Q6 PRN PRN Reason: Fever >100.4 F Last Admin: 02/26/19 16:00 Dose: 650 mg Lactated Ringer's (Lactated Ringer's) 1,000 mls @ 125 mls/hr IV .Q8H ANDRÉS Last Admin: 03/01/19 09:00 Dose: Not Given Vancomycin HCl 1 gm/ Sodium (Chloride) 250 mls @ 166.667 mls/hr IVPB Q12H ANDRÉS; Protocol Last Admin: 03/01/19 11:58 Dose: 166.667 mls/hr Piperacillin Sod/Tazobactam (Sod 3.375 gm/ Sodium Chloride) 100 mls @ 100 mls/hr IVPB Q6 ANDRÉS; Protocol Last Admin: 03/01/19 10:52 Dose: 100 mls/hr Morphine Sulfate (Morphine) 2 mg IVP Q4 PRN PRN Reason: Pain, moderate (4-7) Last Admin: 02/28/19 15:38 Dose: 2 mg - Labs Labs: 02/27/19 06:00 02/27/19 06:00 PT 12.8 Seconds (9.8-13.1) 02/23/19 08:30 INR 1.1 02/23/19 08:30 APTT 37.0 Seconds (25.6-37.1) 02/23/19 08:30 - Constitutional Appears: Non-toxic, Chronically Ill - Head Exam Head Exam: NORMOCEPHALIC - Eye Exam Eye Exam: absent: Scleral icterus - ENT Exam ENT Exam: Mucous Membranes Dry - Neck Exam Neck Exam: absent: Lymphadenopathy - Respiratory Exam Respiratory Exam: Decreased Breath Sounds - Cardiovascular Exam Cardiovascular Exam: REGULAR RHYTHM - GI/Abdominal Exam GI & Abdominal Exam: Distended - Rectal Exam Rectal Exam: Deferred - Exam Exam: NORMAL INSPECTION Assessment and Plan (1) Abscess Status: Acute (2) Alcohol abuse Status: Acute (3) Cellulitis of buttock Status: Acute - Assessment and Plan (Free Text) Assessment: d/c on p9o rx follow up with PMD
--- NOTE | 2019-03-01 21:01 | CP.PCM.DIS ---
Provider - Provider Date of Admission: 02/23/19 14:03 Attending physician: Camacho North MD Consults: 02/23/19 08:41 Surgery [General Surgery Consult] Stat Comment: Consulting Provider: Silvio Carter Consulting Physician: Silvio Carter Reason for Consult: perianal abscess 02/23/19 14:02 Infectious Disease Consult Stat Comment: Consulting Provider: Patrick Gomez Consulting Physician: Patrick Gomez Reason for Consult: abscess 02/24/19 09:00 Nursing Referral for Wound Care Routine Comment: Physician Instructions: Reason For Exam: RIGHT buttocks 3cm x 3cm wound Social Work Referral Routine Comment: etoh abuse hx drinks weekends Physician Instructions: Reason For Exam: hx of etoh abuse 02/26/19 15:03 Gastroenterology Consult Routine Comment: Consulting Provider: Galdino Montes Consulting Physician: Galdino Montes Reason for Consult: bright red blood per rectum; mucous BM, r/o CA Diagnosis - Discharge Diagnosis (1) Perianal abscess Status: Acute Hospital Course - Lab Results Lab Results: Micro Results 02/25/19 01:00 Buttock Gram Stain - Final 02/25/19 01:00 Buttock Wound Culture - Preliminary No growth. 02/23/19 08:30 Blood-Venous Blood Culture - Final NO GROWTH AFTER 5 DAYS 02/23/19 08:30 Blood-Venous Gram Stain - Final TEST NOT PERFORMED 02/23/19 08:30 Blood-Venous Blood Culture - Final NO GROWTH AFTER 5 DAYS 02/23/19 08:30 Blood-Venous Gram Stain - Final TEST NOT PERFORMED Most Recent Lab Values WBC 7.7 K/uL (4.8-10.8) 02/27/19 06:00 RBC 3.96 Mil/uL (4.40-5.90) L 02/27/19 06:00 Hgb 12.3 g/dL (12.0-18.0) 02/27/19 06:00 Hct 36.4 % (35.0-51.0) 02/27/19 06:00 MCV 91.8 fl (80.0-94.0) 02/27/19 06:00 MCH 30.9 pg (27.0-31.0) 02/27/19 06:00 MCHC 33.7 g/dL (33.0-37.0) 02/27/19 06:00 RDW 14.2 % (11.5-14.5) 02/27/19 06:00 Plt Count 199 K/uL (130-400) 02/27/19 06:00 MPV 8.4 fl (7.2-11.7) 02/27/19 06:00 Neut % (Auto) 66.2 % (50.0-75.0) 02/27/19 06:00 Lymph % (Auto) 19.4 % (20.0-40.0) L 02/27/19 06:00 [place] % (Auto) 11.8 % (0.0-10.0) H 02/27/19 06:00 Eos % (Auto) 1.8 % (0.0-4.0) 02/27/19 06:00 Baso % (Auto) 0.8 % (0.0-2.0) 02/27/19 06:00 Neut # (Auto) 5.1 K/uL (1.8-7.0) 02/27/19 06:00 Lymph # (Auto) 1.5 K/uL (1.0-4.3) 02/27/19 06:00 [place] # (Auto) 0.9 K/uL (0.0-0.8) H 02/27/19 06:00 Eos # (Auto) 0.1 K/uL (0.0-0.7) 02/27/19 06:00 Baso # (Auto) 0.1 K/uL (0.0-0.2) 02/27/19 06:00 ESR 76 mm/hr (0-15) H 02/24/19 06:05 PT 12.8 Seconds (9.8-13.1) 02/23/19 08:30 INR 1.1 02/23/19 08:30 APTT 37.0 Seconds (25.6-37.1) 02/23/19 08:30 pO2 43 mm/Hg (30-55) 02/23/19 10:16 VBG pH 7.39 (7.32-7.43) 02/23/19 10:16 VBG pCO2 44 mmHg (40-60) 02/23/19 10:16 VBG HCO3 25.3 mmol/L 02/23/19 10:16 VBG Total CO2 28.0 mmol/L (22-28) 02/23/19 10:16 VBG O2 Sat (Calc) 81.6 % (40-65) H 02/23/19 10:16 VBG Base Excess 1.2 mmol/L (0.0-2.0) 02/23/19 10:16 VBG Potassium 3.7 mmol/L (3.6-5.2) 02/23/19 10:16 Sodium 132.0 mmol/L (132-148) 02/23/19 10:16 Chloride 105.0 mmol/L (98-107) 02/23/19 10:16 Glucose 84 mg/dL (75-110) 02/23/19 10:16 Lactate 0.9 mmol/L (0.7-2.1) 02/23/19 10:16 FiO2 21.0 % 02/23/19 10:16 Sodium 136 mmol/l (132-148) 02/27/19 06:00 Potassium 3.9 MMOL/L (3.6-5.0) 02/27/19 06:00 Chloride 101 mmol/L (98-107) 02/27/19 06:00 Carbon Dioxide 25 mmol/L (22-30) 02/27/19 06:00 Anion Gap 14 (10-20) 02/27/19 06:00 BUN 9 mg/dl (9-20) 02/27/19 06:00 Creatinine 1.0 mg/dl (0.8-1.5) 02/27/19 06:00 Est GFR ( Amer) > 60 02/27/19 06:00 Est GFR (Non-Af Amer) > 60 02/27/19 06:00 Random Glucose 93 mg/dL (75-110) 02/27/19 06:00 Hemoglobin A1c 5.7 % (4.2-6.5) 02/25/19 07:20 Calcium 9.0 mg/dL (8.4-10.2) 02/27/19 06:00 Phosphorus 5.7 mg/dl (2.5-4.5) H 02/27/19 06:00 Magnesium 2.0 MG/DL (1.6-2.3) 02/27/19 06:00 Total Bilirubin 1.0 mg/dl (0.2-1.3) 02/27/19 06:00 AST 57 U/L (17-59) 02/27/19 06:00 ALT 51 U/L (21-72) 02/27/19 06:00 Alkaline Phosphatase 80 U/L (38-126) 02/27/19 06:00 C-Reactive Protein 31.50 mg/L (0.0-9.9) H 02/23/19 10:21 Total Protein 7.5 G/DL (6.3-8.2) 02/27/19 06:00 Albumin 3.7 g/dL (3.5-5.0) 02/27/19 06:00 Globulin 3.8 gm/dL (2.2-3.9) 02/27/19 06:00 Albumin/Globulin Ratio 1.0 (1.0-2.1) 02/27/19 06:00 Venous Blood Potassium 3.7 mmol/L (3.6-5.2) 02/23/19 10:16 Stool Occult Blood Negative (NEGATIVE) 02/25/19 04:00 Vancomycin Trough 9.0 ug/mL (5.0-10.0) 02/25/19 07:20 ANCA Screen Negative (NEGATIVE) 02/23/19 11:21 c-ANCA Titer TNP 02/23/19 11:21 Proteinase 3 (PR3) <1.0 AI (<1.0) 02/23/19 11:21 p-ANCA Titer TNP 02/23/19 11:21 Atypical p-ANCA Titer TNP 02/23/19 11:21 Myeloperoxidase Ab <1.0 AI (<1.0) 02/23/19 11:21 Hepatitis A IgM Ab Negative (NEGATIVE) 02/23/19 11:21 Hep Bs Antigen Negative (NEGATIVE) 02/23/19 11:21 Hep B Core IgM Ab Negative (NEGATIVE) 02/23/19 11:21 Hepatitis C Antibody Negative (NEGATIVE) 02/23/19 11:21 HIV-1 Ab Rapid Screen Non reactive (NON REAC) 02/23/19 10:16 HIV 1&2 Ag/Ab, 4th Gen Nonreactive (Nonreactive) 02/23/19 10:16 Mumps Virus IgG Ab 157.00 AU/mL 02/27/19 06:00 Rubella IgG Antibody 2.74 index 02/27/19 06:00 Rubeola (Measles) IgG >300.00 AU/mL 02/27/19 06:00 VZV IgG Antibody 548.80 index 02/27/19 06:00 Discharge Exam - Head Exam Head Exam: NORMOCEPHALIC Discharge Plan - Discharge Medications Prescriptions: Cephalexin [cephalexin] 500 mg PO Q8 #15 cap Ibuprofen [Motrin] 600 mg PO Q6 #20 tab - Follow Up Plan Condition: FAIR Disposition: HOME/ ROUTINE Instructions: Abscess Incision and Drainage (DC) Additional Instructions: follow up with your primary MD and Dr. Montes in 1 week Referrals: [facility] [Outside] Silvio Carter MD [Staff Provider] - Camacho North MD [Staff Provider] - Galdino Montes MD, PhD [Staff Provider] - Patrick Gomez MD [Staff Provider] -
--- NOTE | 2019-03-01 21:01 | CP.PCM.PN ---
Subjective - Date & Time of Evaluation Date of Evaluation: 02/28/19 Time of Evaluation: 11:00 - Subjective Subjective: patient seen and examined at bedside. Interim events noted no complaints offered at this time denies cp/sob/fever/chills. available diagnostic data reviewed Review of Systems All systems: reviewed and no additional remarkable complaints except mentioned above Objective Vital Signs Stable - Constitutional Appears: Non-toxic, No Acute Distress Head Exam: NORMAL INSPECTION Eye Exam: Normal appearance Respiratory Exam: NORMAL BREATHING PATTERN Cardiovascular Exam: +S1, +S2 GI & Abdominal Exam: Soft Neurological Exam: Alert, Awake Psychiatric exam: Normal Affect, Normal Mood Skin Exam: Normal Color, Warm Assessment and Plan monitor vitals monitor labs Cont meds Cont tx consultants appreciated input f/u wound culture rest of plan as ordered Objective - Vital Signs/Intake and Output Vital Signs (last 24 hours): Temp Pulse Resp BP Pulse Ox 98.3 F 80 20 109/66 98 03/01/19 08:45 03/01/19 08:45 03/01/19 08:45 03/01/19 08:45 03/01/19 08:45 - Labs Labs: 02/27/19 06:00 02/27/19 06:00 PT 12.8 Seconds (9.8-13.1) 02/23/19 08:30 INR 1.1 02/23/19 08:30 APTT 37.0 Seconds (25.6-37.1) 02/23/19 08:30 Assessment and Plan (1) Perianal abscess Status: Acute
== END 2019-03-01 14:26 | disposition home or self-care (01) | DRG 157 ==
LOC: H.ER 07:27 → H.ERHOLD 14:03 → H.MEDSURG1 22:05
PROVIDERS: ADMIT Family Medicine; ATTEND Family Medicine
PROC: 0D9Q0ZZ Drainage of Anus, Open Approach (ICD-10-PCS; principal; 2019-02-26 16:30)
DX: K61.2 Anorectal abscess (principal); L02.31 Cutaneous abscess of buttock; L03.317 Cellulitis of buttock; K59.03 Drug induced constipation; F19.10 Other psychoactive substance abuse, uncomplicated; F10.10 Alcohol abuse, uncomplicated; F32.9 Major depressive disorder, single episode, unspecified; F17.210 Nicotine dependence, cigarettes, uncomplicated

== ENCOUNTER 2019-03-31 20:44 | Emergency (ER) | payer OTHER ==
[2019-03-31 20:45] VITALS: BMI 25.0
[2019-03-31 20:57] VITALS: BP 114/73; PULSE 89; RESP 16; TEMP 97.7; O2SAT 98
--- NOTE | 2019-03-31 21:16 | ED PDOC ---
Upper Extremity Pain/Injury Chief Complaint (Nursing): Finger,Hand,&Wrist History Per: Patient History/Exam Limitations: no limitations Onset/Duration Of Symptoms: Days (3) Additional Complaint(s): 43 y/o male presents to the ED complaining of right hand wart. Patient states he notice a wart on his right hand which was preventing him to lift boxes at work. PMD: none provided Past Medical History Reviewed: Historical Data Vital Signs: Last Vital Signs Temp 97.7 F 03/31/19 20:57 Pulse 89 03/31/19 20:57 Resp 16 03/31/19 20:57 BP 114/73 03/31/19 20:57 Pulse Ox 98 03/31/19 20:57 Primary Care Provider: Non [facility] Provider, - Medical History PMH: Depression Denies: Asthma, Diabetes, Emphysema, Hepatitis, HIV, HTN, Hypercholesterolemia, Chronic Kidney Disease, Seizures, Sexually Transmitted Disease - Family History Family History: States: Unknown Family Hx - Immunization History Hx Tetanus Toxoid Vaccination: No (will update this visit) Hx Influenza Vaccination: Yes Hx Pneumococcal Vaccination: No - Home Medications Home Medications: Ambulatory Orders Medication Instructions Recorded Cephalexin [cephalexin] 500 mg PO Q8 #15 cap 03/01/19 Ibuprofen [Motrin] 600 mg PO Q6 #20 tab 03/01/19 - Allergies Allergies/Adverse Reactions: Allergies Allergy/AdvReac Type Severity Reaction Status Date / Time No Known Allergies Allergy Verified 03/31/19 20:55 Review of Systems ROS Statement: Except As Marked, All Systems Reviewed And Found Negative Musculoskeletal: Positive for: Hand Pain (right hand) Physical Exam - Reviewed Nursing Documentation Reviewed: Yes Vital Signs Reviewed: Yes - Physical Exam Appears: Positive for: Well, Non-toxic, No Acute Distress Head Exam: Positive for: ATRAUMATIC, NORMAL INSPECTION, NORMOCEPHALIC Skin: Positive for: Normal Color, Warm, Dry Eye Exam: Positive for: EOMI, Normal appearance, PERRL ENT: Positive for: Normal ENT Inspection Neck: Positive for: Normal, Painless ROM, Supple Cardiovascular/Chest: Positive for: Regular Rate, Rhythm. Negative for: Murmur Respiratory: Positive for: Normal Breath Sounds. Negative for: Wheezing Gastrointestinal/Abdominal: Positive for: Normal Exam, Soft. Negative for: Tenderness Back: Positive for: Normal Inspection. Negative for: L CVA Tenderness, R CVA Tenderness Extremity: Positive for: Normal ROM, Other (1.25 cm wart on palmar aspect of right hand.) Neurological/Psych: Positive for: Awake, Alert, Normal Tone, Oriented (x3). Negative for: Motor/Sensory Deficits - ECG O2 Sat by Pulse Oximetry: 98 Disposition - Clinical Impression Clinical Impression: Wart - Disposition Referrals: [facility] [Outside] Raul Warner MD [Staff Provider] - Condition: FAIR Instructions: Warts on the Skin
== END 2019-03-31 21:34 | disposition home or self-care (01) ==
LOC: H.ER 20:44
DX: B07.9 Viral wart, unspecified (principal); Z86.59 Personal history of other mental and behavioral disorders